=== PATIENT | male | born 1955 | race Caucasian/White ===

== ENCOUNTER 2023-03-25 15:28 | Inpatient (IN) | payer MEDICARE, SELFPAY ==
[2023-03-25] VITALS (12 sets, daily range): BP systolic 102–146; BP diastolic 40–112; PULSE 61–88; RESP 13–22; TEMP 36.3–36.9; O2SAT 90–100
--- NOTE | ~2023-03-25 | CT_ITS ---
EXAMINATION: CT soft tiss nk chst ab pel w DATE: 03/27/2023 16:09 INDICATION: Infection. TECHNIQUE: Computed tomography (CT) of the neck, chest, abdomen, and pelvis was performed with 100 mL Omnipaque 350 intravenous contrast. Automated exposure control and iterative reconstruction techniqu e were employed. The dose-length product was 2172.80 mGy-cm. COMPARISON: None FINDINGS: NECK CT: There are changes of thyroidectomy. There are no pathologically enlarged lymph nodes. There is modera te cervical spondylosis. There are changes of posterior fusion procedure from C2 to T5. There are foster inectomies from C3 to C7 and at T2 and T3. There is a fluid collection posterior to the cervical and thoracic spine measuring 12.0 x 4.1 x 16.4 cm. There are overlying skin cherise. CHEST CT: There is mild emphysema. There is mild atelectasis bilaterally. No pleural effusion. The heart size i s normal. No pericardial effusion. There are coronary artery calcifications. There is mild thoracic s pondylosis. ABDOMEN/PELVIS CT: There are cysts in the liver measuring up to 4.0 cm. The gallbladder, spleen, pancreas, and left adre nal gland are normal. There is a 2.3 cm mass of fat in right adrenal gland, consistent with a myeloli keisha. Right kidney is normal. There is a 1.9 cm cyst in left kidney. The prostate is mildly enlarged. Stool distends the rectum. There is diverticulosis of the colon without evidence of diverticulitis. The appendix is normal. There is a left-sided inferior vena cava. There are no pathologically enlarge d lymph nodes. There is no free intraperitoneal fluid. There is severe lower lumbar spondylosis. IMPRESSION: 1. 12.0 x 4.1 x 16.4 cm fluid collection posterior to the cervical and thoracic spine in the area of recent surgery, consistent with seroma versus hematoma. Abscess cannot be excluded. 2. Mild emphysema. Reviewed, dictated and finalized at location A. IMPRESSION: 1. 12.0 x 4.1 x 16.4 cm fluid collection posterior to the cervical and thoracic spine in the area of recent surgery, consistent with seroma versus hematoma. A bscess cannot be excluded. 2. Mild emphysema.
--- NOTE | ~2023-03-25 | XR_ITS ---
EXAMINATION: XR chest 1V portable DATE: 03/30/2023 13:33 INDICATION: Aspiration. TECHNIQUE: A single frontal view of the chest was obtained. COMPARISON: Chest single view 03/25/2023, CT abdomen and pelvis 03/30/2023 FINDINGS: There is mild elevation of left hemidiaphragm. There is mild atelectasis at left lung base. No pleural effusion or pneumothorax. The heart size is normal. There are changes of posterior fusion procedure in cervicothoracic spine. IMPRESSION: 1. Mild atelectasis at left lung base. Reviewed, dictated and finalized at location A.
--- NOTE | ~2023-03-25 | CT_ITS ---
EXAMINATION: CT brain wo con DATE: 03/25/2023 17:10 INDICATION: AMS . TECHNIQUE: Computed tomography (CT) of the head was performed without intravenous contrast. The mA wa s adjusted according to patient size. Iterative reconstruction technique was employed. The dose-lengt h product was 605.33 mGy-cm. COMPARISON: None. FINDINGS: No acute intracranial hemorrhage or extra-axial fluid collection. No hydrocephalus, mass, or herniation. No acute ischemic infarct. Unremarkable dural venous sinus attenuation. No acute osseous abnormality. Skin cherise over the posterior neck with subjacent postsurgical change in the soft tissues. The aerated spaces are clear. Mild atrophy and chronic white matter change. Atherosclerotic intracranial calcification. IMPRESSION: No acute intracranial process. Reviewed, dictated and finalized at location K.
--- NOTE | ~2023-03-25 | CT_ITS ---
EXAMINATION: CT thoracic spine w con DATE: 03/27/2023 16:10 INDICATION: Infection. TECHNIQUE: Computed tomography (CT) of the thoracic spine was performed with 100 mL Omnipaque 350 int ravenous contrast. Automated exposure control and iterative reconstruction technique were employed. T he dose-length product was 2172.80 mGy-cm. COMPARISON: None FINDINGS: There are changes of posterior fusion procedure from C2 to T5. There are laminectomies from C3 to C7 and at T2 and T3. No periscrew lucency to suggest loosening or infection. There is mild chr onic anterior wedging of T7 and T8 vertebral bodies. There are Schmorl's nodes at multiple levels. Th ere is mildly decreased disc height at T4-T5, T5-T6 through T9-T10. There is multilevel mild to moder ate facet joint osteoarthritis. There is mild neural foraminal stenosis at multiple levels bilaterall y. On the right, there is moderate neural foraminal stenosis at T2-T3. On the left, there is moderate neural foraminal stenosis at T1-T2 and T2-T3. There is a fluid collection posterior to the cervical and thoracic spine measuring 12.0 x 4.1 x 16.4 cm. IMPRESSION: 1. Posterior fusion procedure from C2 to T5. 2. Moderate thoracic spondylosis. 3. Postoperative fluid collection posterior to the cervical and thoracic spine measuring 12.0 x 4.1 x 16.4 cm, which may be a hematoma or seroma. Abscess cannot be excluded. Reviewed, dictated and finalized at location A. IMPRESSION: 1. Posterior fusion procedure from C2 to T5. 2. Moderate thoracic spondylosis. 3. Postoperative fluid collection posterior to the cervical and thoracic spine measuring 12.0 x 4.1 x 16.4 cm, which may be a hematoma or seroma. Abscess niki ot be excluded.
--- NOTE | ~2023-03-25 | CT_ITS ---
EXAMINATION: CT abdomen pelvis wo con DATE: 03/30/2023 09:30 INDICATION: Acute anemia after surgery. TECHNIQUE: Computed tomography (CT) of the abdomen and pelvis was performed without intravenous contr ast. Automated exposure control and iterative reconstruction technique were employed. The dose-length product was 1680.02 mGy-cm. COMPARISON: CT abdomen and pelvis 03/27/2023 FINDINGS: The visualized portions of the lung bases demonstrate mild atelectasis. There are trace ple ural effusions. The heart size is normal. There are coronary artery calcifications. No pericardial ef fusion. There are cysts in the liver measuring up to 3.9 cm. The spleen, gallbladder, pancreas, and l eft adrenal gland are normal. There is a 2.2 cm mass of fat in right adrenal gland, consistent with a myelolipoma. The kidneys are normal. There is no urolithiasis. There is diverticulosis of the colon without evidence of diverticulitis. There is a large volume of stool in the colon. There is an ulcer of the first portion of the duodenum with surrounding fat stranding, consistent with inflammation. Th ere is calcified atherosclerosis of the aorta and many of the other arteries. There are no pathologic ally enlarged lymph nodes. There is no free intraperitoneal fluid. There is severe lower lumbar spond ylosis. There is mild thoracic spondylosis. IMPRESSION: 1. Ulcer of the first portion of the duodenum with inflammation. Reviewed, dictated and finalized at location A.
--- NOTE | ~2023-03-25 | XR_ITS ---
EXAMINATION: XR chest 1V portable Exam Date/Time: 03/25/2023 16:20 CDT HISTORY: AMS Comparison: None. RESULT: Lines, tubes, and devices: Midline skin cherise. Partially visualized posterior fusion hardware. Lungs and pleura: Clear. Cardiomediastinal silhouette: Unremarkable. Other: No acute osseous or upper abdominal finding. IMPRESSION: No acute cardiopulmonary process. Reviewed, dictated and finalized at location K.
--- NOTE | 2023-03-25 15:48 | ECG_ITS ---
Measurements Intervals [place] Rate: 62 P: 68 OK: 164 QRS: -12 QRSD: 69 T: 60 QT: 396 QTc: 403 Interpretive Statements SINUS RHYTHM NONSPECIFIC T-WAVE ABNORMALITY NO PREVIOUS ECG AVAILABLE FOR COMPARISON Electronically Signed On 03-26-2023 15:54:00 CDT by Leia Wilson M.D.
[2023-03-25 16:16] LABS: Basophils Absolute Auto 0.1 K/mm3 (0.0-0.1); Basophils Percent Auto 0.4 % (0.2-1.2); Eosinophils Absolute Auto 0.2 K/mm3 (0-0.3); Eosinophils Percent Auto 1.3 % (0-4.4); Hemoglobin 11.4 g/dL (14.0-18.0); Immature Granulocyte Absolute 0.15 K/mm3 (0.00-0.031); Immature Granulocyte Percent A 1.1 % (0-0.5); Lymphocytes Absolute Auto 1.52 K/mm3 (0.9-3.2); Lymphocytes Percent Auto 11.1 % (18.3-44.2); Mean Corpuscular HGB Conc 31.7 g/dl (32-36); Mean Corpuscular Hemoglobin 30.4 pg (26-34); Mean Platelet Volume 9.5 fl (7.4-10.4); Monocytes Absolute Auto 1.1 K/mm3 (0.1-0.6); Monocytes Percent Auto 8.3 % (2.6-8.5); Neutrophils Absolute Auto 10.7 K/mm3 (1.3-6.7); Neutrophils Percent Auto 77.8 % (45.5-73.1); Platelet Count Result 369 k/mm3 (150-375); Red Blood Count 3.75 M/mm3 (4.6-6.20); Red Cell Distribution Width 12.6 % (11.5-14.5); White Blood Count 13.7 K/mm3 (4.5-10.0)
[2023-03-25 16:27] LABS: INR 1.1; Prothrombin Time 14.8 Seconds (11.1-14.7)
[2023-03-25 16:28] LABS: Alanine Aminotransferase 44 U/L (6-50); Albumin Level 3.5 g/dL (3.5-5.1); Alkaline Phosphatase 62 U/L (38-126); Anion Gap 5 mmol/L (8-16); Aspartate Amino Transferase 43 U/L (17-59); Bilirubin,Total 0.8 mg/dL (0.2-1.3); Blood Urea Nitrogen 16 mg/dL (9-20); Calcium 8.1 mg/dL (8.4-10.2); Carbon Dioxide 28 mmol/L (22-30); Chloride 106 mmol/L (98-107); Estimated CRCL calculation 103 ml/min; Estimated Glomerular Filt Rate > 60; Glucose 120 mg/dL (65-110); Partial Thromboplastin Time 31.5 SECONDS (22.3-36.8); Potassium 3.9 mmol/L (3.4-5.0); Sodium 139 mmol/L (137-145)
[2023-03-25] MEDS: SODIUM CHLORIDE 0.9% IV 3,100 ML/1,000 ML BAG 999 ML IV CONT ×4 (16:32→19:22)
[2023-03-25 16:58] LABS: Alveolar/Arterial O2 Gradient 42.7 mmHg; Carboxyhemoglobin 0.4 % THb (0-2.0); Fractional Inspired Oxygen 21 %; HCO3 ABG 22.7 mEq/l (22.0-26.0); Methemoglobin ABG 0.1 %THb (0-1.5); Oxygen Content ABG 14.2 %vol (16.0-22.0); Oxyhemoglobin 91.4 % THb (90.0-100.0); PO2 ABG 66.3 mmHg (80.0-100.0); PO2 FiO2 Ratio Arterial Blood 3.16 %; Reduced Hemoglobin 8.1 %THb (0-5.0); pH ABG 7.442 (7.350-7.450)
[2023-03-25 17:01] LABS: Device ROOM AIR; Site Drawn RIGHT BRACHIAL
[2023-03-25 17:11] LABS: Appearance Urine Clear (Clear); Bilirubin Urine 1+ (Negative); Blood Urine Negative (Negative); Color Urine Yellow (Yellow); Glucose Urine UA Negative (Negative); Ketones Urine 1+ mg/dL (Negative); Leukocyte Esterase Ur Negative LEU/UL (Negative); Nitrate Urine Negative (Negative); Protein Urine Negative (Negative); pH Urine 5.5 (5.0-9.0)
[2023-03-25 17:15] LABS: Bacteria Urine None Seen /hpf; Non Pathogenic Casts 0-2; RBC Urine 0-2 /hpf (0-2); Squamous Epithelial Cell Urine None seen /hpf (Few); WBC Urine 0-5 /hpf
[2023-03-25 17:17] LABS: Add Urine Microscopic? YES
--- NOTE | 2023-03-25 17:54 | ED.AMS ---
HPI - Altered Mental Status General Chief Complaint: Altered Mental Status Stated Complaint: AMS - from [facility] Time Seen by Provider: 03/25/23 15:36 History of Present Illness HPI narrative: Patient is a 67-year-old male who presents ER with altered mental status. Patient underwent surgery on 03/20/2023 at [facility]. He had a multilevel spine surgery from the C-spine to the T-spine. He had some bony tumor resected that was not considered to be serious. He had a fusion as well. Prior to this patient had a thyroidectomy where there was cancer noted in the thyroid. He had been doing well until spine surgery. He was normal in the preop area but after coming out from the surgery he has been altered and never returned to her normal baseline. Family denies any aggressive work-up that occurred at [facility] including MRI or CT. He has been at [facility] since being there he has been started on quetiapine and olanzapine to help with agitation. There does not appear to be any benzodiazepines or narcotic pain medications ordered. He is on melatonin. Related Data Home Medications Medication Instructions Recorded Confirmed budesonide-formoterol HFA 160 2 puff inhalation Q12H 03/21/23 03/21/23 mcg-4.5 mcg/actuation aerosol inhaler (Symbicort) levothyroxine 137 mcg tablet 137 mcg PO DAILY@0630 03/21/23 03/21/23 multivitamin 1 tablet PO DAILY 03/21/23 03/21/23 polysaccharide iron complex 150 mg 150 mg PO DAILY 03/21/23 03/21/23 iron capsule Allergies Allergy/AdvReac Type Severity Reaction Status Date / Time No Known Allergies Allergy Verified 03/21/23 17:17 Review of Systems Review of Systems: ROS unobtainable: Yes unobtainable due to mental status PMFSH Past Medical History Medical History (Updated 03/25/23 @ 18:41 by Johnathan Ruiz MD) Cervical myelopathy COPD (chronic obstructive pulmonary disease) Emphysema lung History of thyroid cancer Hypothyroidism Obstructive sleep apnea Surgical History Surgical History (Updated 03/25/23 @ 18:14 by Johnathan Ruiz MD) H/O cervical spine surgery History of thyroidectomy Family History Family History Mother Parkinson disease Father Cancer Social History Social History Smoking packs per day: 2 Smoking cigarettes per day: 40.0 Years smoked: 50 Smoking pack-years: 100.00 Smoking status: Former smoker Tobacco type: cigarettes Smoking end date: 06/17/18 Alcohol intake: former Substance use: never Lack of Transportation: No Lack of Food: Never True Current Housing: I Have Housing Concerned About Future Housing: No Difficulty Paying Gas/Electric Bills: No Difficulty Paying for Meds: No Currently Unemployed: No Education: Trade/Vocational Certificate Difficulty w/ Childcare or Family Care: No Living arrangements: with family Occupation/Education: retired Gender identity (if verbalized by the patient): Male Sexual Orientation (if Verbalized by the Patient): Straight or Heterosexual Spiritual care concerns: No Agree to blood products: Yes Exam Narrative: GENERAL: Confused-appearing, well-nourished, and in no acute distress. HEAD: Normocephalic, atraumatic. EYES: PERRL and EOMI. ENT: Dry mucous membranes. NECK: Supple. CHEST: Clear to auscultation. No respiratory distress. HEART: Regular rate and rhythm. Normal peripheral pulses. ABDOMEN: Soft, nontender, nondistended. Spine: Well-healing incision in the upper cervical spine to the lower thoracic spine. No wound dehiscence. Bag[place] in place. No surrounding swelling or cellulitis. No drainage. EXTREMITIES: Normal range of motion. No edema. SKIN: Warm, dry, no rash. NEURO: Patient is awake and alert. He will follow commands. He was able to tell us that the date was 2022 and his name however he is quite confused o
--- NOTE | 2023-03-25 19:07 | PC.NURSE ---
, Marsha [phone], please update
[2023-03-25 19:25] LABS: Procalcitonin 0.1 ng/mL
[2023-03-25 20:00] LABS: CRP 2.8 mg/dL (<1.0)
--- NOTE | 2023-03-25 20:42 | ADMGEN ---
This patient, Ayden Butt, was admitted to Medical Room 345-01. Patient/family oriented to hospital policies and general routines including ID bracelet, bed and alarms, visiting hours, pain management, procedures, bathroom and other care routines, personal items, smoking policy, room service/diet, and visiting hours. Information on how to activate the Rapid Response Team has been discussed. Patient/Family are encouraged to report perceived risks to care and to ask questions if they do not understand what they are told or what they should do.
--- NOTE | 2023-03-25 20:44 | PM.IMHP ---
H&P: HPI History of Present Illness Date/Time: 03/25/23 20:00 Chief Complaint: Altered mental status. Narrative: This is a 67-year-old male with chronic obstructive pulmonary disease, obstructive sleep apnea on CPAP, thyroid cancer status post thyroidectomy, and hypertension who presented to the emergency department via EMS from [facility] for evaluation of altered mental status. He is not able to provide an accurate history and his and daughter provide a majority of the following information. He was a bit more alert and awake when he 1st arrived to the ED according to ED physician documentation. 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 He has been confused since surgery and has not returned to baseline. He is unable to hold a conversation, appears to have occasional hallucinations, is impulsive, and he has a tendency to become agitated and somewhat aggressive with staff. He has not been able to participate in therapy and he is not eating or drinking much. He is receiving only Tylenol for pain control. Sleep is poor and sporadic. The other night he was given olanzapine 5 mg which helped him rest for only a couple of hours. He shows no signs of improvement and was brought to the ER today for evaluation. At the time my evaluation he is disagreeable, somewhat aggressive, and he does not answer questions appropriately (occasional nonsensical answers) or follow commands. No recent falls. No history of dementia. No significant alcohol use or illicit substance abuse. In the ED: He was afebrile on arrival. Vital signs have been stable. Labs were significant for a WBC count of 13.7, hemoglobin 11.4, platelets 369, sodium 139, potassium 3.9, BUN 16, creatinine 0.70, carbon dioxide 28, procalcitonin 0.1, lactic acid 1.0, CRP 2.8. Urine was positive for 1+ ketones but was otherwise unremarkable. He is not hypoxic or hypercarbic. Brain CT and chest x-rays were unremarkable. He received several L of IV crystalloids in the ED and he is being admitted in this setting for further evaluation. Review of Systems Review of Systems: Unable to assess given current clinical condition as detailed above. [facility] Past Medical History Medical History (Updated 03/25/23 @ 20:51 by Cris Maya PA-C) Cervical myelopathy Chronic obstructive pulmonary disease Emphysema lung Hypothyroidism Obstructive sleep apnea Thyroid cancer Surgical History Surgical History (Updated 03/25/23 @ 23:14 by Cris Maya PA-C) History of cervical spinal surgery History of thyroidectomy Family History Family History Mother Parkinson disease Father Cancer Social History Social History (Updated 03/25/23 @ 20:52 by Cris Maya PA-C) Social History: Surrogate medical decision maker: Marsha Butt, spouse. Code status: Full code. Smoking packs per day: 2 Smoking cigarettes per day: 40.0 Years smoked: 50 Smoking pack-years: 100.00 Smoking status: Former smoker Tobacco type: cigarettes Smoking end date: 06/17/18 Alcohol intake: former Substance use: never Lack of Transportation: No Lack of Food: Never True Current Housing: I Have Housing Concerned About Future Housing: No Difficulty Paying Gas/Electric Bills: No Difficulty Paying for Meds: No Currently Unemployed: No Education: Trade/Vocational Certificate Difficulty w/ Childcare or Family Care: No Living arrangements: with family Occupation/Education: retired Spiritual care concerns: No Agree to blood products: Yes Meds Ho
[2023-03-25 21:20] LABS: Free T4 Free Thyroxine Reflex 1.32 ng/dL (0.78-2.19)
[2023-03-26] VITALS (9 sets, daily range): BP systolic 90–109; BP diastolic 50–74; PULSE 70–92; RESP 18–20; TEMP 35.7–37.8; O2SAT 95–99
[2023-03-26] MEDS: LEVOTHYROXINE SODIUM 25 MCG TABLET PO (05:25)
[2023-03-26] MEDS: LEVOTHYROXINE SODIUM 112 MCG TABLET PO (05:25)
[2023-03-26] MEDS: FLUTICASONE/SALMETEROL 115-21 MCG INHALER 1 PUFF 2 PUFF INHALATION ×2 (07:41→20:45)
[2023-03-26 07:53] LABS: Amphetamine Screen Urine Negative (Negative); Barbiturate Screen Urine Negative (Negative); Benzodiazepines Screen Urine Negative (Negative); Cannabinoid Screen Urine Negative (Negative); Cocaine Screen Urine Negative (Negative); Methadone Screen Urine Negative (Negative); Opiate Screen Urine Negative (Negative); Phencyclidine Screen Urine Negative (Negative)
[2023-03-26 08:14] LABS: Hemoglobin 10.6 g/dL (14.0-18.0); Mean Corpuscular HGB Conc 31.2 g/dl (32-36); Mean Corpuscular Hemoglobin 30.4 pg (26-34); Mean Corpuscular Volume 97.4 fl (80-100); Mean Platelet Volume 9.7 fl (7.4-10.4); Platelet Count Result 459 k/mm3 (150-375); Red Blood Count 3.49 M/mm3 (4.6-6.20); Red Cell Distribution Width 12.4 % (11.5-14.5); White Blood Count 19.1 K/mm3 (4.5-10.0)
[2023-03-26] MEDS: polyethylene glycoL 3350 17 GM POWD.PACK PO (08:22)
[2023-03-26] MEDS: ENOXAPARIN 40 MG/0.4 ML SYRINGE SUB-Q (08:23)
[2023-03-26 08:24] LABS: Alanine Aminotransferase 42 U/L (6-50); Albumin Level 3.5 g/dL (3.5-5.1); Alkaline Phosphatase 67 U/L (38-126); Anion Gap 8 mmol/L (8-16); Aspartate Amino Transferase 35 U/L (17-59); Bilirubin,Total 0.8 mg/dL (0.2-1.3); Blood Urea Nitrogen 16 mg/dL (9-20); Calcium 7.6 mg/dL (8.4-10.2); Carbon Dioxide 21 mmol/L (22-30); Chloride 108 mmol/L (98-107); Estimated CRCL calculation 103 ml/min; Estimated Glomerular Filt Rate > 60; Glucose 120 mg/dL (65-110); Magnesium 2.3 mg/dL (1.6-2.3); Potassium 3.6 mmol/L (3.4-5.0); Sodium 137 mmol/L (137-145)
[2023-03-26 08:28] LABS: Ammonia < 9 umol/L (9-30)
--- NOTE | 2023-03-26 08:28 | P.PNIM_ITS ---
Progress Note: A&P Assessment and Plan (1) Altered mental status: Code(s): R41.82 - Altered mental status, unspecified Status: Acute Assessment and Plan: 03/26/23: * Patient awake and alert, he does not seem agitated however he is restless, he is talking incoherently with sporadic thought process, pupils 2 mm, equal, and reactive to light, he will follow commands. * Patient was on Zyprexa and Seroquel at [facility], not sure if this is contributing to his altered mental status. * Patient and deny any alcohol abuse which would suggest alcohol withdrawal, patient has not had a drink since August of this year * UA only showed 1+ ketones, 1+ bili, no culture indicated * Patient has history of thyroid cancer which she had resected and January of this past year, TSH today is 9.43, free T4 1.32, total T3 0.7. * Neuro exam negative today, able to do F-N-F test, EOM intact, cranial nerves intact * Blood sugars have been ranging 120-130 * Patient has history of COPD and pCO2 on overnight ABG was 34.0, serum carbon dioxide 21 so we can rule out CO2 retention. * BUN 16, creatinine 0.7 today * He has not received any pain medication related to his spine surgery that may contribute to his altered mental status * We checked an ammonia level which was less than 9, liver enzymes were essentially normal so we can rule out hepatic encephalopathy * Patient has had spine surgery on 03/14/23 at [facility] in [place], patient has an incision from neck to midthoracic with cherise that are open to air, incision well approximated, no redness or drainage noted, white blood cell count today was 19.1, procalcitonin was 0.1. WBC may be due to inflammatory response however bacterial and viral infection cannot be ruled out as the patient is still altered. * states that patient has not slept since his surgery on 03/14/2023 and that he left [facility] to go to [facility] even though he was still altered at time of discharge. Patient may just be delirious from not sleeping. I wrote for 1 time dose of Haldol 5 mg to be given today for him to rest. I also wrote for trazodone 50 mg to be given tonight for sleep. We will re-evaluate him in the morning. If he is not better with his mental s tatus then a neurology consult may be warranted. (2) Hypothyroidism: Code(s): E03.9 - Hypothyroidism, unspecified Status: Acute Assessment and Plan: 03/26/2023: * Patient has history of thyroid cancer with resection done January of this year. * Continue Synthroid (3) Obstructive sleep apnea: Code(s): G47.33 - Obstructive sleep apnea (adult) (pediatric) Status: Acute Assessment and Plan: 03/26/23: * Patient currently on room air * PCO2 34.0, concurrently not retaining any CO2 (4) Leukocytosis: Code(s): D72.829 - Elevated white blood cell count, unspecified Status: Acute Assessment and Plan: 03/26/23 * WBC 19.1 today * Blood cultures pending * Procalcitonin 0.1, patient currently not on antibiotics * Spinal incision without redness, swelling, drainage. Incision well approximated with cherise. No signs of infection. (5) Status post spinal surgery: Code(s): Z98.890 - Other specified postprocedural states Status: Acute Assessment and Plan: 03/26/23: Patient underwent elective spinal surgery on 03/14/2023 at [facility] in [place] which included CT-T5 posterior instrumentation fusion with decompression,-C3 through C7 T3 laminectomy for resection of tumor, and T3 vertebral body bone open biopsy secondary to cervical and thoracic spondylosis and spina
--- NOTE | 2023-03-26 08:28 | PM.IMPN ---
Progress Note: A&P Assessment and Plan (1) Altered mental status: Code(s): R41.82 - Altered mental status, unspecified Status: Acute Assessment and Plan: 03/26/23: Patient awake and alert, he does not seem agitated however he is restless, he is talking incoherently with sporadic thought process, pupils 2 mm, equal, and reactive to light, he will follow commands. Patient was on Zyprexa and Seroquel at [facility], not sure if this is contributing to his altered mental status. Patient and deny any alcohol abuse which would suggest alcohol withdrawal, patient has not had a drink since August of this year UA only showed 1+ ketones, 1+ bili, no culture indicated Patient has history of thyroid cancer which she had resected and January of this past year, TSH today is 9.43, free T4 1.32, total T3 0.7. Neuro exam negative today, able to do F-N-F test, EOM intact, cranial nerves intact Blood sugars have been ranging 120-130 Patient has history of COPD and pCO2 on overnight ABG was 34.0, serum carbon dioxide 21 so we can rule out CO2 retention. BUN 16, creatinine 0.7 today He has not received any pain medication related to his spine surgery that may contribute to his altered mental status We checked an ammonia level which was less than 9, liver enzymes were essentially normal so we can rule out hepatic encephalopathy Patient has had spine surgery on 03/14/23 at [facility] in [place], patient has an incision from neck to midthoracic with cherise that are open to air, incision well approximated, no redness or drainage noted, white blood cell count today was 19.1, procalcitonin was 0.1. WBC may be due to inflammatory response however bacterial and viral infection cannot be ruled out as the patient is still altered. states that patient has not slept since his surgery on 03/14/2023 and that he left [facility] to go to [facility] even though he was still altered at time of discharge. Patient may just be delirious from not sleeping. I wrote for 1 time dose of Haldol 5 mg to be given today for him to rest. I also wrote for trazodone 50 mg to be given tonight for sleep. We will re-evaluate him in the morning. If he is not better with his mental status then a neurology consult may be warranted. (2) Hypothyroidism: Code(s): E03.9 - Hypothyroidism, unspecified Status: Acute Assessment and Plan: 03/26/2023: Patient has history of thyroid cancer with resection done January of this year. Continue Synthroid (3) Obstructive sleep apnea: Code(s): G47.33 - Obstructive sleep apnea (adult) (pediatric) Status: Acute Assessment and Plan: 03/26/23: Patient currently on room air PCO2 34.0, concurrently not retaining any CO2 (4) Leukocytosis: Code(s): D72.829 - Elevated white blood cell count, unspecified Status: Acute Assessment and Plan: 03/26/23 WBC 19.1 today Blood cultures pending Procalcitonin 0.1, patient currently not on antibiotics Spinal incision without redness, swelling, drainage. Incision well approximated with cherise. No signs of infection. 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 Time Spent With Patient Time with patient: Greater than 35 minutes Subjective Date/time seen: 03/26/23 08:28 Interval history: Interval summary: This is a 67-year-old male who presented to hospital via EMS from [facility] for evaluation of altered mental st
[2023-03-26 09:51] LABS: Free T4 Free Thyroxine Reflex 1.11 ng/dL (0.78-2.19)
[2023-03-26] MEDS: MULTIVITAMINS THERAPEUTIC TAB (*BKC) 1 TABLET PO (12:50)
[2023-03-26] MEDS: FERROUS SULFATE 325 MG TABLET DR PO (12:50)
[2023-03-26] MEDS: DEXTROSE 5%/0.9% SOD CHL 1,000 ML 100 ML IV CONT (13:52)
[2023-03-26] MEDS: HALOPERIDOL LACTATE 5 MG/ML VIAL IV PUSH (13:53)
[2023-03-26 19:15] LABS: Basophils Percent Auto 0.3 % (0.2-1.2); Eosinophils Absolute Auto 0.1 K/mm3 (0-0.3); Eosinophils Percent Auto 0.4 % (0-4.4); Hemoglobin 10.3 g/dL (14.0-18.0); Immature Granulocyte Absolute 0.19 K/mm3 (0.00-0.031); Immature Granulocyte Percent A 1.2 % (0-0.5); Lymphocytes Absolute Auto 1.56 K/mm3 (0.9-3.2); Mean Corpuscular HGB Conc 31.2 g/dl (32-36); Mean Corpuscular Hemoglobin 30.8 pg (26-34); Mean Corpuscular Volume 98.8 fl (80-100); Mean Platelet Volume 9.7 fl (7.4-10.4); Monocytes Absolute Auto 1.1 K/mm3 (0.1-0.6); Neutrophils Absolute Auto 12.7 K/mm3 (1.3-6.7); Neutrophils Percent Auto 81.1 % (45.5-73.1); Platelet Count Result 372 k/mm3 (150-375); Red Blood Count 3.34 M/mm3 (4.6-6.20); Red Cell Distribution Width 12.6 % (11.5-14.5); White Blood Count 15.6 K/mm3 (4.5-10.0)
[2023-03-26 19:33] LABS: Alanine Aminotransferase 39 U/L (6-50); Albumin Level 3.1 g/dL (3.5-5.1); Alkaline Phosphatase 60 U/L (38-126); Anion Gap 6 mmol/L (8-16); Aspartate Amino Transferase 33 U/L (17-59); Bilirubin,Total 0.5 mg/dL (0.2-1.3); Blood Urea Nitrogen 20 mg/dL (9-20); Calcium 7.8 mg/dL (8.4-10.2); Carbon Dioxide 24 mmol/L (22-30); Chloride 108 mmol/L (98-107); Estimated CRCL calculation 91 ml/min; Estimated Glomerular Filt Rate > 60; Glucose 104 mg/dL (65-110); Potassium 3.5 mmol/L (3.4-5.0); Sodium 138 mmol/L (137-145)
[2023-03-27 04:36] VITALS: BP 119/68; PULSE 115; RESP 16; TEMP 36.3; O2SAT 96
[2023-03-27] MEDS: LEVOTHYROXINE SODIUM 25 MCG TABLET PO (05:53)
[2023-03-27] MEDS: LEVOTHYROXINE SODIUM 112 MCG TABLET PO (05:53)
[2023-03-27 06:15] LABS: Magnesium 2.2 mg/dL (1.6-2.3)
[2023-03-27] MEDS: polyethylene glycoL 3350 17 GM POWD.PACK PO (08:37)
[2023-03-27] MEDS: ENOXAPARIN 40 MG/0.4 ML SYRINGE SUB-Q (08:37)
[2023-03-27 08:40] VITALS: BP 103/74; PULSE 84; RESP 18; TEMP 36.9; O2SAT 99
[2023-03-27 09:12] LABS: Basophils Percent Auto 0.2 % (0.2-1.2); Eosinophils Absolute Auto 0.1 K/mm3 (0-0.3); Eosinophils Percent Auto 0.5 % (0-4.4); Hematocrit 31.8 % (42.0-52.0); Hemoglobin 10.1 g/dL (14.0-18.0); Immature Granulocyte Absolute 0.17 K/mm3 (0.00-0.031); Lymphocytes Absolute Auto 1.27 K/mm3 (0.9-3.2); Lymphocytes Percent Auto 7.2 % (18.3-44.2); Mean Corpuscular HGB Conc 31.8 g/dl (32-36); Mean Corpuscular Hemoglobin 30.8 pg (26-34); Monocytes Absolute Auto 1.1 K/mm3 (0.1-0.6); Monocytes Percent Auto 6.5 % (2.6-8.5); Neutrophils Absolute Auto 14.9 K/mm3 (1.3-6.7); Neutrophils Percent Auto 84.6 % (45.5-73.1); Platelet Count Result 420 k/mm3 (150-375); Red Blood Count 3.28 M/mm3 (4.6-6.20); Red Cell Distribution Width 12.7 % (11.5-14.5); White Blood Count 17.6 K/mm3 (4.5-10.0)
[2023-03-27 09:25] LABS: Alanine Aminotransferase 47 U/L (6-50); Albumin Level 3.2 g/dL (3.5-5.1); Alkaline Phosphatase 71 U/L (38-126); Anion Gap 6 mmol/L (8-16); Aspartate Amino Transferase 44 U/L (17-59); Bilirubin,Total 0.7 mg/dL (0.2-1.3); Blood Urea Nitrogen 21 mg/dL (9-20); Calcium 7.9 mg/dL (8.4-10.2); Carbon Dioxide 24 mmol/L (22-30); Chloride 107 mmol/L (98-107); Estimated CRCL calculation 103 ml/min; Estimated Glomerular Filt Rate > 60; Glucose 112 mg/dL (65-110); Potassium 3.3 mmol/L (3.4-5.0); Sodium 137 mmol/L (137-145)
[2023-03-27] MEDS: FLUTICASONE/SALMETEROL 115-21 MCG INHALER 1 PUFF 2 PUFF INHALATION ×2 (09:54→22:00)
[2023-03-27 09:57] VITALS: RESP 20
[2023-03-27] MEDS: DEXTROSE 5%/0.9% SOD CHL 1,000 ML 100 ML IV CONT ×2 (12:40→20:27)
[2023-03-27] MEDS: MULTIVITAMINS THERAPEUTIC TAB (*BKC) 1 TABLET PO (12:40)
[2023-03-27] MEDS: FERROUS SULFATE 325 MG TABLET DR PO (12:40)
--- NOTE | 2023-03-27 14:10 | PM.IMPN ---
Progress Note: A&P Assessment and Plan (1) Altered mental status: Code(s): R41.82 - Altered mental status, unspecified Status: Acute Assessment and Plan: Patient has had spine surgery on 03/14/23 at [facility], patient has an incision from neck to midthoracic with cherise that are open to air, incision well approximated, no redness or drainage noted, white blood cell count today was 17.6, procalcitonin was 0.1. WBC may be due to inflammatory response however bacterial and viral infection cannot be ruled out as the patient is still altered. Patient with elevated white count without evidence of infection. Urine, CT head and CXR clear. UA only showed 1+ ketones, 1+ bili, no culture indicated No hx of alcohol or drug abuse. Patient has history of COPD and pCO2 on overnight ABG was 34.0, serum carbon dioxide 21 so we can rule out CO2 retention. We checked an ammonia level which was less than 9, liver enzymes were essentially normal so we can rule out hepatic encephalopathy CT chest, abdomen, pelvis, cervical, thoracic and lumbar ordered. Consider LP depending of CT scans results. (2) Hypothyroidism: Code(s): E03.9 - Hypothyroidism, unspecified Status: Acute Assessment and Plan: Patient has history of thyroid cancer with resection done January of this year. Continue Synthroid (3) Obstructive sleep apnea: Code(s): G47.33 - Obstructive sleep apnea (adult) (pediatric) Status: Acute Assessment and Plan: Patient currently on room air PCO2 34.0, concurrently not retaining any CO2 (4) Leukocytosis: Code(s): D72.829 - Elevated white blood cell count, unspecified Status: Acute Assessment and Plan: WBC 17.6 today Blood cultures pending Procalcitonin 0.1, patient currently not on antibiotics Spinal incision without redness, swelling, drainage. Incision well approximated with cherise. No signs of infection. 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 Subjective Date/time seen: 03/27/23 14:10 Interval history: Patient appears to be delirious. Spoke with nurse that works with patient's neurosurgeon from [facility] informed her of the situation. Was told that patient could be experiencing postoperative delirium. Will attempt to contact patient's neurosurgeon. Spoke with radiologist here and they are recommending CT of spine as well as CT chest abdomen pelvis. Patient does have lower extremity edema that presented shortly after surgery. Will order BNP for the morning. Patient has been experiencing these mental status changes since his surgery. Will also plan on consulting Neurology. Exam Narrative: GENERAL: Comfortable, no acute distress HENMT: moist mucous membranes EYES: EOM intact b/l NECK: no lymphadenopathy RESPIRATORY: clear to auscultation CARDIO: RRR GI: soft, nontender, bowel sounds present SKIN: no rashes EXTREMITIES: no redness, tenderness; 2+ pitting edema of lower extremities. BACK: Well-healing surgical incision from the middle of the neck to her thoracic spine with cherise in place. Minimal redness and skin is a nice pink color without drainage or swelling. Tremor noticed in bilateral hands. Objective Data Vital Signs Vital Signs: Vital Signs - 24 hr 03/26/23 16:00 03/26/23 16:00 03/26/23 20:00 Temperature 96.5 F L Pulse Rate 70 75 Respiratory Rate 18 Blood Pressure 109/53
[2023-03-27 16:41] VITALS: BP 131/76; PULSE 69; RESP 18; TEMP 36.8; O2SAT 100
[2023-03-27 18:41] LABS: Basophils Absolute Auto 0.1 K/mm3 (0.0-0.1); Basophils Percent Auto 0.3 % (0.2-1.2); Eosinophils Absolute Auto 0.1 K/mm3 (0-0.3); Eosinophils Percent Auto 0.9 % (0-4.4); Hematocrit 32.5 % (42.0-52.0); Hemoglobin 9.8 g/dL (14.0-18.0); Immature Granulocyte Absolute 0.17 K/mm3 (0.00-0.031); Immature Granulocyte Percent A 1.1 % (0-0.5); Lymphocytes Absolute Auto 1.49 K/mm3 (0.9-3.2); Lymphocytes Percent Auto 9.6 % (18.3-44.2); Mean Corpuscular HGB Conc 30.2 g/dl (32-36); Mean Corpuscular Hemoglobin 30.3 pg (26-34); Mean Corpuscular Volume 100.6 fl (80-100); Mean Platelet Volume 9.8 fl (7.4-10.4); Monocytes Percent Auto 6.2 % (2.6-8.5); Neutrophils Absolute Auto 12.7 K/mm3 (1.3-6.7); Neutrophils Percent Auto 81.9 % (45.5-73.1); Platelet Count Result 384 k/mm3 (150-375); Red Blood Count 3.23 M/mm3 (4.6-6.20); Red Cell Distribution Width 12.6 % (11.5-14.5); White Blood Count 15.5 K/mm3 (4.5-10.0)
[2023-03-27 18:53] LABS: Alanine Aminotransferase 50 U/L (6-50); Albumin Level 3.2 g/dL (3.5-5.1); Alkaline Phosphatase 69 U/L (38-126); Anion Gap 9 mmol/L (8-16); Aspartate Amino Transferase 43 U/L (17-59); Bilirubin,Total 0.6 mg/dL (0.2-1.3); Blood Urea Nitrogen 20 mg/dL (9-20); Calcium 7.8 mg/dL (8.4-10.2); Carbon Dioxide 22 mmol/L (22-30); Chloride 107 mmol/L (98-107); Estimated CRCL calculation 103 ml/min; Estimated Glomerular Filt Rate > 60; Glucose 121 mg/dL (65-110); Potassium 3.3 mmol/L (3.4-5.0); Sodium 138 mmol/L (137-145)
[2023-03-27 20:00] VITALS: BP 121/66; PULSE 76; RESP 14; TEMP 36.9; O2SAT 100
[2023-03-27] MEDS: MELATONIN 3 MG TABLET 9 MG PO (20:19)
[2023-03-27 22:26] VITALS: PULSE 67; RESP 21; O2SAT 95
--- NOTE | 2023-03-28 | ECHO_ITS ---
Patient Info Name: Ayden Butt Age: 67 years : 1955 Gender: Male Ht: 65 in Wt: 220 lbs BSA: 2.18 m2 HR: 72 bpm BP: 109 / 66 mmHg Heart Rhythm: Indeterminant Technical Quality: Good Exam Date: 03/28/2023 11:28 AM Exam Location: [facility] Pulmonary Patient Status: Inpatient Admit Date: 03/26/2023 Staff Ordering Physician: Zulay Prince PA-C Site Planner: Dwight Hayes RDCS Attending Provider: Ashlee Navarrete DO Referring Physician: Suresh SUN; Exam Type: CA echo doppler color flow Study Info Indications - LOWER EXTREMITY EDEMA Complete two-dimensional, color flow and Doppler transthoracic echocardiogram is performed. Summary 1. Complete two-dimensional, color flow and Doppler transthoracic echocardiogram is performed. 2. Left ventricular chamber dimension is normal. 3. Left ventricular systolic function is normal, estimated at 60-65%. 4. There is no increased left ventricular wall thickness. 5. The left ventricular diastolic function is grade I diastolic dysfunction. 6. Left atrial chamber dimension is mildly enlarged. 7. The mitral valve annulus is mildly calcified. 8. There is mild mitral valve regurgitation. Left Ventricle Left ventricular chamber dimension is normal. Left ventricular systolic function is normal, estimated at 60-65%. There is no increased left ventricular wall thickness. The left ventricular diastolic function is grade I diastolic dysfunction. Right Ventricle Right ventricular chamber dimension is normal. Right ventricular systolic function is normal. Left Atria Left atrial chamber dimension is mildly enlarged. Right Atria Right atrial chamber dimension is normal. Atrial Septum Intact interatrial septum visualized by color flow imaging. Aortic Valve The aortic valve is probable trileaflet. There is mild aortic valve sclerosis. There is no aortic valve stenosis. There is trace aortic valve regurgitation. Pulmonic Valve The pulmonic valve is normal. There is no pulmonic valve stenosis. There is trace pulmonic regurgitation. Mitral Valve The mitral valve has thickened leaflets. There is no mitral valve stenosis. There is mild mitral valve regurgitation. The mitral valve annulus is mildly calcified. Tricuspid Valve The tricuspid valve leaflets are normal. There is no significant tricuspid valve stenosis. There is trace tricuspid valve regurgitation. No pulmonary hypertension, estimated pulmonary arterial systolic pressure is 17 mmHg. Pericardium/Pleural The pericardium appears normal. There is no pericardial effusion. Inferior Vena Cava Normal inferior vena cava with >50% collapse upon inspiration consistent with normal right atrial pressure, 10 mmHg. Aorta The aortic root size at the sinus of Valsalva is normal. Left Ventricular Outflow Tract Name Value Normal LVOT 2D LVOT Diameter 1.8 cm LVOT Doppler LVOT Peak Gradient 7 mmHg LVOT Mean Gradient 3 mmHg LVOT VTI 28 cm LVOT VTI/AV VTI Ratio 1.0 LVOT Stroke Volume 73 ml LVOT CO 4.5 l/min
[2023-03-28 04:00] VITALS: BP 109/66; PULSE 69; RESP 14; TEMP 36.9; O2SAT 97
[2023-03-28] MEDS: LEVOTHYROXINE SODIUM 25 MCG TABLET PO (05:43)
[2023-03-28] MEDS: LEVOTHYROXINE SODIUM 112 MCG TABLET PO (05:43)
[2023-03-28 06:18] LABS: NT Pro B Type Natriuretic Pept 224 pg/mL (19.9-100)
[2023-03-28] MEDS: FLUTICASONE/SALMETEROL 115-21 MCG INHALER 1 PUFF 2 PUFF INHALATION ×2 (06:55→20:32)
[2023-03-28 07:00] VITALS: PULSE 72; RESP 18; O2SAT 95
[2023-03-28 08:21] LABS: Basophils Percent Auto 0.2 % (0.2-1.2); Eosinophils Absolute Auto 0.2 K/mm3 (0-0.3); Eosinophils Percent Auto 1.6 % (0-4.4); Hematocrit 30.4 % (42.0-52.0); Hemoglobin 9.3 g/dL (14.0-18.0); Immature Granulocyte Absolute 0.19 K/mm3 (0.00-0.031); Immature Granulocyte Percent A 1.5 % (0-0.5); Lymphocytes Absolute Auto 1.12 K/mm3 (0.9-3.2); Mean Corpuscular HGB Conc 30.6 g/dl (32-36); Mean Corpuscular Hemoglobin 30.2 pg (26-34); Mean Corpuscular Volume 98.7 fl (80-100); Mean Platelet Volume 9.9 fl (7.4-10.4); Monocytes Percent Auto 7.7 % (2.6-8.5); Neutrophils Absolute Auto 9.9 K/mm3 (1.3-6.7); Platelet Count Result 378 k/mm3 (150-375); Red Blood Count 3.08 M/mm3 (4.6-6.20); Red Cell Distribution Width 12.8 % (11.5-14.5); White Blood Count 12.4 K/mm3 (4.5-10.0)
[2023-03-28] MEDS: ENOXAPARIN 40 MG/0.4 ML SYRINGE SUB-Q (08:21)
[2023-03-28] MEDS: polyethylene glycoL 3350 17 GM POWD.PACK PO (08:21)
[2023-03-28 08:28] LABS: Alanine Aminotransferase 50 U/L (6-50); Albumin Level 2.9 g/dL (3.5-5.1); Alkaline Phosphatase 65 U/L (38-126); Aspartate Amino Transferase 45 U/L (17-59); Blood Urea Nitrogen 17 mg/dL (9-20)
[2023-03-28 08:29] LABS: Anion Gap 6 mmol/L (8-16); Bilirubin,Total 0.5 mg/dL (0.2-1.3); Calcium 7.6 mg/dL (8.4-10.2); Carbon Dioxide 23 mmol/L (22-30); Chloride 109 mmol/L (98-107); Estimated CRCL calculation 103 ml/min; Estimated Glomerular Filt Rate > 60; Glucose 134 mg/dL (65-110); Potassium 3.2 mmol/L (3.4-5.0); Sodium 138 mmol/L (137-145)
[2023-03-28] MEDS: POTASSIUM CHLORIDE 20 MEQ ER TABLET 40 MEQ PO (09:50)
[2023-03-28] MEDS: ACETAMINOPHEN 325 MG TABLET 650 MG PO ×2 (09:50→18:35)
--- NOTE | 2023-03-28 12:03 | WPDNEURCNPN ---
Assessment and Plan Assessment and plan (1) Altered mental status: Code(s): R41.82 - Altered mental status, unspecified Status: Acute (2) Status post spinal surgery: Code(s): Z98.890 - Other specified postprocedural states Status: Acute (3) Hypothyroidism: Code(s): E03.9 - Hypothyroidism, unspecified Status: Acute (4) Delirium: Code(s): R41.0 - Disorientation, unspecified Status: Acute Plan Ayden Butt is a 67 year old male with a history of COPD, JOSE, thyroid cancer s/p thyroidectomy, HN [facility] status in the setting of recent spinal surgery. Etiology is broad at this point. Patient's neurosurgeon suspecting this is post-operative delirium. However, now that we are two weeks out from surgery, we are also considering underlying infection, medication effect, and stroke as possibilities. CT chest/abd showed fluid collection around the surgical area, which could be infectious in etiology, although he has remained afebrile and WBC has come down without use of antibiotics. TSH elevated to 9 which also could be contributing. Mental status seems to have improved since psychotropic medications were discontinued. - Would like to get an MRI brain when able, given the problems with speech, and questionable LUE weakness - Will continue to monitor mental status, may consider LP if he becomes more encephalopathic Consult date: 03/28/23 Reason for consult: Altered mental status HPI: Ayden Butt is a 67 year old male with a history of COPD, JOSE, thyroid cancer s/p thyroidectomy, HN presenting from [facility] for altered mental status. Of note, patient was in rehab after having surgery on 03/14 at [facility] for C2-T5 fusion with decompression and C3 through C7-T3 laminectomy for resection of a tumor, and T3 vertebral body bone open biopsy. reports that patient has been confused since his surgery and has not been back to baseline. He was unable to hold a conversation, having hallucinations, agitated/aggressive. He was not sleeping well at rehab either. He received Seroquel and Zyprexa during his rehab stay. When he was brought to [facility] he was afebrile with stable vitals. His labs were significant for leukocytosis, which has gone up to 19.1 during this admission. CXR and UA not concerning for infection. CT head was negative for acute process. TSH elevated to 9.760. CT of the chest/abdomen/pelvis done which showed [id number] fluid collection posterior to C/T spine suggestive of seroma vs hematoma, although abscess cannot be excluded. Unfortunately he cannot have MRI currently due to the surgical cherise that were placed. The hospitalist discontinued psychotropic medications, and patient actually appears to be more alert and communicative today. He continues to have some word salad' while speaking to members of the medical team. His WBC has come down to 12 today, without the use of any antibiotics. He has also remained afebrile. Review of Systems Constitutional: Constitutional: Denies chills, Denies fever(s) and Denies weight loss Eyes: Eyes: Denies diplopia and Denies loss of vision ENT: Denies dizziness, Denies hearing loss and Denies tinnitus Cardiovascular: Cardiovascular: Denies chest pain, Denies syncope and Denies dyspnea Respiratory: Respiratory: Denies cough, Denies dyspnea and Denies wheezing Gastrointestinal: Gastrointestinal: Denies abdominal pain, Denies change in bowel habits, Reports constipation and Denies vomiting Genitourinary: Genitourinary: Denies urinary incontinence Musculoskeletal: Musculoskeletal: Reports back pain, Reports arthralgias and Denies joint swelling Integumentary/Breasts: Skin/Breast: Denies new lesions and Denies rash Neurologic: Reports as per HPI, Denies dizziness, Denies syncope and Denies loss of vision Psychiatric: Psychiatric: Denies anxiety and Denies depression Hematologic/Lymphatic: Hematologic/Lymp
[2023-03-28] MEDS: MULTIVITAMINS THERAPEUTIC TAB (*BKC) 1 TABLET PO (13:04)
[2023-03-28] MEDS: FERROUS SULFATE 325 MG TABLET DR PO (13:04)
[2023-03-28] MEDS: DEXTROSE 5%/0.9% SOD CHL 1,000 ML 100 ML IV CONT (13:06)
[2023-03-28 14:41] VITALS: BP 108/62; PULSE 77; RESP 18; TEMP 36.4; O2SAT 97
--- NOTE | 2023-03-28 14:48 | PM.IMPN ---
Progress Note: A&P Assessment and Plan (1) Altered mental status: Code(s): R41.82 - Altered mental status, unspecified Status: Acute Assessment and Plan: Patient has had spine surgery on 03/14/23 at [facility] in [place], patient has an incision from neck to midthoracic with cherise that are open to air, incision well approximated, no redness or drainage noted, white blood cell count today was 17.6, procalcitonin was 0.1. WBC may be due to inflammatory response however bacterial and viral infection cannot be ruled out as the patient is still altered. Patient with elevated white count without evidence of infection. Urine, CT head and CXR clear. UA only showed 1+ ketones, 1+ bili, no culture indicated No hx of alcohol or drug abuse. Patient has history of COPD and pCO2 on overnight ABG was 34.0, serum carbon dioxide 21 so we can rule out CO2 retention. We checked an ammonia level which was less than 9, liver enzymes were essentially normal so we can rule out hepatic encephalopathy CT chest, abdomen, pelvis, cervical, thoracic and lumbar showing a 12 x 4.1 x 16.4 cm fluid collection in the posterior cervical and thoracic spine area most likely consistent with seroma versus hematoma but abscess cannot be excluded. Neurology consulted appreciate recommendations. (2) Hypothyroidism: Code(s): E03.9 - Hypothyroidism, unspecified Status: Acute Assessment and Plan: Patient has history of thyroid cancer with resection done January of this year. Continue Synthroid (3) Obstructive sleep apnea: Code(s): G47.33 - Obstructive sleep apnea (adult) (pediatric) Status: Acute Assessment and Plan: Patient currently on room air PCO2 34.0, concurrently not retaining any CO2 (4) Leukocytosis: Code(s): D72.829 - Elevated white blood cell count, unspecified Status: Acute Assessment and Plan: WBC 12.4 today Blood cultures pending Procalcitonin 0.1, patient currently not on antibiotics Spinal incision without redness, swelling, drainage. Incision well approximated with cherise. No signs of infection. 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 Subjective Date/time seen: 03/28/23 14:48 Interval history: Mental status much improved today. Patient still having some trouble finding words but otherwise able to have decent conversation. All of patient's altering medications were discontinued and after this he has seen to be more alert and oriented. Patient's white count has dropped to 12.4 today. Will continue to monitor the patient off of mind-altering medications. Neurology on board. Exam Narrative: GENERAL: Comfortable, no acute distress HENMT: moist mucous membranes EYES: EOM intact b/l NECK: no lymphadenopathy RESPIRATORY: clear to auscultation CARDIO: RRR GI: soft, nontender, bowel sounds present SKIN: no rashes EXTREMITIES: no redness, tenderness; 2+ pitting edema of lower extremities. BACK: Well-healing surgical incision from the middle of the neck to her thoracic spine with cherise in place. Minimal redness and skin is a nice pink color without drainage or swelling. Tremor noticed in bilateral hands. Objective Data Vital Signs Vital Signs: Vital Signs - 24 hr 03/27/23 16:41 03/27/23 20:00 03/27/23 22:26 Temperature 98.2 F 98.5 F Pulse Rate 69 76 67 Respiratory Rate 18 14 21 H Blood Pressure 131/76 121/66
[2023-03-28 18:22] LABS: Basophils Absolute Auto 0.1 K/mm3 (0.0-0.1); Basophils Percent Auto 0.4 % (0.2-1.2); Eosinophils Absolute Auto 0.3 K/mm3 (0-0.3); Eosinophils Percent Auto 2.3 % (0-4.4); Hemoglobin 9.3 g/dL (14.0-18.0); Immature Granulocyte Absolute 0.13 K/mm3 (0.00-0.031); Immature Granulocyte Percent A 1.1 % (0-0.5); Lymphocytes Absolute Auto 1.48 K/mm3 (0.9-3.2); Lymphocytes Percent Auto 12.4 % (18.3-44.2); Mean Corpuscular Hemoglobin 30.5 pg (26-34); Mean Corpuscular Volume 98.4 fl (80-100); Mean Platelet Volume 9.7 fl (7.4-10.4); Monocytes Percent Auto 8.6 % (2.6-8.5); Neutrophils Percent Auto 75.2 % (45.5-73.1); Platelet Count Result 367 k/mm3 (150-375); Red Blood Count 3.05 M/mm3 (4.6-6.20)
[2023-03-28 18:30] VITALS: BP 108/77; PULSE 85; RESP 18; TEMP 36.1; O2SAT 100
[2023-03-28 18:34] LABS: Alanine Aminotransferase 54 U/L (6-50); Alkaline Phosphatase 66 U/L (38-126); Anion Gap 4 mmol/L (8-16); Aspartate Amino Transferase 44 U/L (17-59); Bilirubin,Total 0.5 mg/dL (0.2-1.3); Blood Urea Nitrogen 18 mg/dL (9-20); Calcium 7.6 mg/dL (8.4-10.2); Carbon Dioxide 24 mmol/L (22-30); Chloride 111 mmol/L (98-107); Estimated CRCL calculation 103 ml/min; Estimated Glomerular Filt Rate > 60; Glucose 101 mg/dL (65-110); Potassium 3.5 mmol/L (3.4-5.0); Sodium 139 mmol/L (137-145)
[2023-03-28] MEDS: MELATONIN 3 MG TABLET 9 MG PO (20:23)
[2023-03-28 20:36] VITALS: PULSE 71; RESP 18
[2023-03-28 22:20] VITALS: BP 110/85; PULSE 73; RESP 21; TEMP 36.1; O2SAT 100
[2023-03-29] VITALS (9 sets, daily range): BP systolic 100–143; BP diastolic 56–76; PULSE 74–90; RESP 18–20; TEMP 36.3–36.6; O2SAT 95–100; BMI 32.1
[2023-03-29] MEDS: DEXTROSE 5%/0.9% SOD CHL 1,000 ML 100 ML IV CONT (02:38)
[2023-03-29] MEDS: IBUPROFEN 600 MG TABLET PO (02:39)
[2023-03-29 05:39] LABS: Basophils Absolute Auto 0.1 K/mm3 (0.0-0.1); Basophils Percent Auto 0.5 % (0.2-1.2); Eosinophils Absolute Auto 0.3 K/mm3 (0-0.3); Eosinophils Percent Auto 2.1 % (0-4.4); Hematocrit 27.7 % (42.0-52.0); Hemoglobin 8.5 g/dL (14.0-18.0); Immature Granulocyte Absolute 0.12 K/mm3 (0.00-0.031); Lymphocytes Absolute Auto 1.13 K/mm3 (0.9-3.2); Lymphocytes Percent Auto 9.7 % (18.3-44.2); Mean Corpuscular HGB Conc 30.7 g/dl (32-36); Mean Corpuscular Hemoglobin 30.9 pg (26-34); Mean Corpuscular Volume 100.7 fl (80-100); Mean Platelet Volume 9.9 fl (7.4-10.4); Monocytes Absolute Auto 0.9 K/mm3 (0.1-0.6); Monocytes Percent Auto 7.6 % (2.6-8.5); Neutrophils Absolute Auto 9.2 K/mm3 (1.3-6.7); Neutrophils Percent Auto 79.1 % (45.5-73.1); Platelet Count Result 346 k/mm3 (150-375); Red Blood Count 2.75 M/mm3 (4.6-6.20); Red Cell Distribution Width 12.8 % (11.5-14.5); White Blood Count 11.7 K/mm3 (4.5-10.0)
[2023-03-29] MEDS: LEVOTHYROXINE SODIUM 25 MCG TABLET PO (05:44)
[2023-03-29] MEDS: LEVOTHYROXINE SODIUM 112 MCG TABLET PO (05:44)
[2023-03-29 05:58] LABS: Alanine Aminotransferase 46 U/L (6-50); Albumin Level 2.6 g/dL (3.5-5.1); Alkaline Phosphatase 60 U/L (38-126); Anion Gap 3 mmol/L (8-16); Aspartate Amino Transferase 36 U/L (17-59); Bilirubin,Total 0.5 mg/dL (0.2-1.3); Blood Urea Nitrogen 17 mg/dL (9-20); Calcium 7.2 mg/dL (8.4-10.2); Carbon Dioxide 25 mmol/L (22-30); Chloride 109 mmol/L (98-107); Estimated CRCL calculation 119 ml/min; Estimated Glomerular Filt Rate > 60; Glucose 115 mg/dL (65-110); Potassium 3.5 mmol/L (3.4-5.0); Sodium 137 mmol/L (137-145)
[2023-03-29] MEDS: FLUTICASONE/SALMETEROL 115-21 MCG INHALER 1 PUFF 2 PUFF INHALATION ×2 (07:32→20:32)
[2023-03-29] MEDS: polyethylene glycoL 3350 17 GM POWD.PACK PO (08:19)
[2023-03-29] MEDS: ENOXAPARIN 40 MG/0.4 ML SYRINGE SUB-Q (08:19)
[2023-03-29 10:37] LABS: Transferrin 124 mg/dL (206-381)
[2023-03-29 10:48] LABS: Iron 51 ug/dL (49-181)
[2023-03-29 10:58] LABS: Percent Iron Saturation 25 % (20-50)
--- NOTE | 2023-03-29 11:30 | WPDNEUROPN ---
Progress Note: A&P Assessment and Plan (1) Altered mental status: Code(s): R41.82 - Altered mental status, unspecified Status: Acute (2) Status post spinal surgery: Code(s): Z98.890 - Other specified postprocedural states Status: Acute (3) Hypothyroidism: Code(s): E03.9 - Hypothyroidism, unspecified Status: Acute (4) Delirium: Code(s): R41.0 - Disorientation, unspecified Status: Acute Plan Ayden Butt is a 67 year old male with a history of COPD, JOSE, thyroid cancer s/p thyroidectomy, HN presenting from [facility] for altered mental status in the setting of recent spinal surgery. Etiology is broad at this point. Patient's neurosurgeon suspecting this is post-operative delirium. However, now that we are two weeks out from surgery, we are also considering underlying infection, medication effect, and stroke as possibilities. CT chest/abd showed fluid collection around the surgical area, which could be infectious in etiology, although he has remained afebrile and WBC has come down without use of antibiotics. TSH elevated to 9 which also could be contributing. Mental status seems to have improved since psychotropic medications were discontinued. - Would like to get an MRI brain when able, given the problems with speech, and questionable LUE weakness - Will continue to monitor mental status, may consider LP if he becomes more encephalopathic Subjective Date/time seen: 03/29/23 11:30 Interval history: Ayden Butt is a 67 year old male with a history of COPD, JOSE, thyroid cancer s/p thyroidectomy, HN [facility]. Of note, patient was in rehab after having surgery on 03/14 at [facility] for C2-T5 fusion with decompression and C3 through C7-T3 laminectomy for resection of a tumor, and T3 vertebral body bone open biopsy. reports that patient has been confused since his surgery and has not been back to baseline. He was unable to hold a conversation, having hallucinations, agitated/aggressive. He was not sleeping well at rehab either. He received Seroquel and Zyprexa during his rehab stay. When he was brought to [facility] he was afebrile with stable vitals. His labs were significant for leukocytosis, which has gone up to 19.1 during this admission. CXR and UA not concerning for infection. CT head was negative for acute process. TSH elevated to 9.760. CT of the chest/abdomen/pelvis done which showed [id number] fluid collection posterior to C/T spine suggestive of seroma vs hematoma, although abscess cannot be excluded. Unfortunately he cannot have MRI currently due to the surgical cherise that were placed. The hospitalist discontinued psychotropic medications, and patient actually appears to be more alert and communicative today. He continues to have some word salad' while speaking to members of the medical team. His WBC has come down to 11.7 today, without the use of any antibiotics. He has also remained afebrile. Very tangential speech, alert today but thinks he is [place] [employer]. He did remember me from yesterday. Review of Systems Constitutional: Constitutional: Denies chills, Denies fever(s) and Denies weight loss Eyes: Eyes: Denies diplopia and Denies loss of vision ENT: Denies dizziness, Denies hearing loss and Denies tinnitus Cardiovascular: Cardiovascular: Denies chest pain, Denies syncope and Denies dyspnea Respiratory: Respiratory: Denies cough, Denies dyspnea and Denies wheezing Gastrointestinal: Gastrointestinal: Denies abdominal pain, Denies change in bowel habits, Reports constipation and Denies vomiting Genitourinary: Genitourinary: Denies urinary incontinence Musculoskeletal: Musculoskeletal: Reports back pain, Reports arthralgias and Denies joint swelling Integumentary/Breasts: Skin/Breast: Denies new lesions and Denies rash Neurologic: Reports as per HPI, Denies dizziness, Denies syncope and Denies loss of vision P
[2023-03-29 11:34] LABS: Folic Acid 10.1 ng/mL (2.76->20)
[2023-03-29 12:20] LABS: Free T4 Free Thyroxine Reflex 1.01 ng/dL (0.78-2.19)
--- NOTE | 2023-03-29 14:49 | PM.IMPN ---
Progress Note: A&P Assessment and Plan (1) Altered mental status: Code(s): R41.82 - Altered mental status, unspecified Status: Acute Assessment and Plan: Patient has had spine surgery on 03/14/23 at [facility] in [place], patient has an incision from neck to midthoracic with cherise that are open to air, incision well approximated, no redness or drainage noted, white blood cell count today was 17.6, procalcitonin was 0.1. WBC may be due to inflammatory response however bacterial and viral infection cannot be ruled out as the patient is still altered. Patient with elevated white count without evidence of infection. Urine, CT head and CXR clear. UA only showed 1+ ketones, 1+ bili, no culture indicated No hx of alcohol or drug abuse. Patient has history of COPD and pCO2 on overnight ABG was 34.0, serum carbon dioxide 21 so we can rule out CO2 retention. We checked an ammonia level which was less than 9, liver enzymes were essentially normal so we can rule out hepatic encephalopathy CT chest, abdomen, pelvis, cervical, thoracic and lumbar showing a 12 x 4.1 x 16.4 cm fluid collection in the posterior cervical and thoracic spine area most likely consistent with seroma versus hematoma but abscess cannot be excluded. Neurology consulted appreciate recommendations. (2) Hypothyroidism: Code(s): E03.9 - Hypothyroidism, unspecified Status: Acute Assessment and Plan: Patient has history of thyroid cancer with resection done January of this year. Continue Synthroid (3) Obstructive sleep apnea: Code(s): G47.33 - Obstructive sleep apnea (adult) (pediatric) Status: Acute Assessment and Plan: Patient currently on room air PCO2 34.0, concurrently not retaining any CO2 (4) Leukocytosis: Code(s): D72.829 - Elevated white blood cell count, unspecified Status: Acute Assessment and Plan: WBC 11.7 today Blood cultures No growth to date Procalcitonin 0.1, patient currently not on antibiotics Spinal incision without redness, swelling, drainage. Incision well approximated with cherise. No signs of infection. 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 Subjective Date/time seen: 03/29/23 14:49 Interval history: patient appears a bit more confused today but not sure if this is because his is not the room redirecting him or not. Patient did know who I was. He believed that he was on [employer] when I spoke with him. Patient's white count continues to trend downward. Patient working with PT and OT. Patient does not seem like he is significantly improving although he is not getting any worse. Patient is aware of year, month and president. He is also aware that he is about to have his wedding anniversary. He is not sure where he is or why he is here. Exam Narrative: GENERAL: Comfortable, no acute distress HENMT: moist mucous membranes EYES: EOM intact b/l NECK: no lymphadenopathy RESPIRATORY: clear to auscultation CARDIO: RRR GI: soft, nontender, bowel sounds present SKIN: no rashes EXTREMITIES: no redness, tenderness; 2+ pitting edema of lower extremities. BACK: Well-healing surgical incision from the middle of the neck to her thoracic spine with cherise in place. Minimal redness and skin is a nice pink color without drainage or swelling. Tremor noticed in bilateral hands. Objective Data Vital Signs María Elena
[2023-03-29] MEDS: ACETAMINOPHEN 325 MG TABLET 650 MG PO (17:49)
[2023-03-29 17:52] LABS: Basophils Percent Auto 0.3 % (0.2-1.2); Eosinophils Absolute Auto 0.1 K/mm3 (0-0.3); Eosinophils Percent Auto 0.6 % (0-4.4); Hematocrit 22.8 % (42.0-52.0); Immature Granulocyte Absolute 0.18 K/mm3 (0.00-0.031); Immature Granulocyte Percent A 1.3 % (0-0.5); Lymphocytes Absolute Auto 1.57 K/mm3 (0.9-3.2); Lymphocytes Percent Auto 11.6 % (18.3-44.2); Mean Corpuscular HGB Conc 30.7 g/dl (32-36); Mean Corpuscular Hemoglobin 30.3 pg (26-34); Mean Corpuscular Volume 98.7 fl (80-100); Mean Platelet Volume 9.8 fl (7.4-10.4); Monocytes Absolute Auto 0.9 K/mm3 (0.1-0.6); Monocytes Percent Auto 6.9 % (2.6-8.5); Neutrophils Absolute Auto 10.8 K/mm3 (1.3-6.7); Neutrophils Percent Auto 79.3 % (45.5-73.1); Platelet Count Result 401 k/mm3 (150-375); Red Blood Count 2.31 M/mm3 (4.6-6.20); Red Cell Distribution Width 13.1 % (11.5-14.5); White Blood Count 13.6 K/mm3 (4.5-10.0)
[2023-03-29 18:08] LABS: Alanine Aminotransferase 41 U/L (6-50); Albumin Level 2.6 g/dL (3.5-5.1); Alkaline Phosphatase 57 U/L (38-126); Anion Gap 3 mmol/L (8-16); Aspartate Amino Transferase 30 U/L (17-59); Bilirubin,Total 0.4 mg/dL (0.2-1.3); Blood Urea Nitrogen 31 mg/dL (9-20); Calcium 7.3 mg/dL (8.4-10.2); Carbon Dioxide 24 mmol/L (22-30); Chloride 110 mmol/L (98-107); Estimated CRCL calculation 91 ml/min; Estimated Glomerular Filt Rate > 60; Glucose 104 mg/dL (65-110); Potassium 3.7 mmol/L (3.4-5.0); Sodium 137 mmol/L (137-145)
[2023-03-29] MEDS: MELATONIN 3 MG TABLET 9 MG PO (21:39)
[2023-03-29] MEDS: SODIUM CHLORIDE 0.9% IV 250 ML 30 ML IV CONT (21:41)
[2023-03-30] VITALS (14 sets, daily range): BP systolic 99–125; BP diastolic 53–79; PULSE 65–90; RESP 16–18; TEMP 36.3–37; O2SAT 97–100
[2023-03-30] MEDS: HALOPERIDOL LACTATE 5 MG/ML VIAL IM (00:18)
[2023-03-30 01:31] LABS: Hematocrit 21.6 % (42.0-52.0)
[2023-03-30 02:17] LABS: Hemoglobin 6.9 g/dL (14.0-18.0)
[2023-03-30 02:31] LABS: IFOB Positive Control Positive; Immunochemical Fecal Occult Bl Positive (N)
[2023-03-30] MEDS: LEVOTHYROXINE SODIUM 25 MCG TABLET PO (07:22)
[2023-03-30] MEDS: LEVOTHYROXINE SODIUM 112 MCG TABLET PO (07:22)
[2023-03-30] MEDS: FLUTICASONE/SALMETEROL 115-21 MCG INHALER 1 PUFF 2 PUFF INHALATION (07:32)
[2023-03-30] MEDS: IBUPROFEN 600 MG TABLET PO (07:39)
[2023-03-30 08:16] LABS: Hematocrit 22.2 % (42.0-52.0)
[2023-03-30 08:24] LABS: Hemoglobin 6.8 g/dL (14.0-18.0)
[2023-03-30 08:56] LABS: Basophils Percent Auto 0.3 % (0.2-1.2); Eosinophils Percent Auto 0.3 % (0-4.4); Immature Granulocyte Absolute 0.27 K/mm3 (0.00-0.031); Immature Granulocyte Percent A 1.9 % (0-0.5); Lymphocytes Absolute Auto 1.41 K/mm3 (0.9-3.2); Lymphocytes Percent Auto 9.8 % (18.3-44.2); Mean Corpuscular HGB Conc 31.1 g/dl (32-36); Mean Corpuscular Hemoglobin 31.1 pg (26-34); Mean Platelet Volume 10.4 fl (7.4-10.4); Monocytes Absolute Auto 1.2 K/mm3 (0.1-0.6); Monocytes Percent Auto 8.3 % (2.6-8.5); Neutrophils Absolute Auto 11.5 K/mm3 (1.3-6.7); Neutrophils Percent Auto 79.4 % (45.5-73.1); Nucleated Red Blood Cells Perc 0.1 % (0.0-0.2); Platelet Count Result 372 k/mm3 (150-375); Red Blood Count 2.19 M/mm3 (4.6-6.20); Red Cell Distribution Width 14.6 % (11.5-14.5); White Blood Count 14.4 K/mm3 (4.5-10.0)
[2023-03-30 09:26] LABS: Alanine Aminotransferase 34 U/L (6-50); Albumin Level 2.4 g/dL (3.5-5.1); Alkaline Phosphatase 52 U/L (38-126); Anion Gap 5 mmol/L (8-16); Aspartate Amino Transferase 30 U/L (17-59); Bilirubin,Total 0.5 mg/dL (0.2-1.3); Blood Urea Nitrogen 37 mg/dL (9-20); Calcium 7.1 mg/dL (8.4-10.2); Carbon Dioxide 21 mmol/L (22-30); Chloride 111 mmol/L (98-107); Estimated CRCL calculation 90 ml/min; Estimated Glomerular Filt Rate > 60; Glucose 130 mg/dL (65-110); Potassium 3.5 mmol/L (3.4-5.0); Sodium 137 mmol/L (137-145)
[2023-03-30 09:44] LABS: CRP 1.6 mg/dL (<1.0)
[2023-03-30] MEDS: SODIUM CHLORIDE 0.9% IV 250 ML 30 ML IV CONT (09:44)
--- NOTE | 2023-03-30 10:14 | WPDNEUROPN ---
Progress Note: A&P Assessment and Plan (1) Altered mental status: Code(s): R41.82 - Altered mental status, unspecified Status: Acute (2) Status post spinal surgery: Code(s): Z98.890 - Other specified postprocedural states Status: Acute (3) Hypothyroidism: Code(s): E03.9 - Hypothyroidism, unspecified Status: Acute (4) Delirium: Code(s): R41.0 - Disorientation, unspecified Status: Acute Plan Ayden Butt is a 67 year old male with a history of COPD, JOSE, thyroid cancer s/p thyroidectomy, HN presenting from [facility] for altered mental status in the setting of recent spinal surgery. Etiology is broad at this point. Patient's neurosurgeon suspecting this is post-operative delirium. However, now that we are two weeks out from surgery, we are also considering underlying infection, medication effect, and stroke as possibilities. CT chest/abd showed fluid collection around the surgical area, which could be infectious in etiology, WBC uptrending again. TSH elevated to 9 which also could be contributing. Course has now also been complicated by anemia due to presumed blood loss from undetermined site. - MRI brain and cervical/thoracic spine with and without contrast has been ordered - Hospitalist is working on getting patient transferred to higher level of care Subjective Date/time seen: 03/30/23 10:14 Interval history: Ayden Butt is a 67 year old male with a history of COPD, JOSE, thyroid cancer s/p thyroidectomy, HN presenting from [facility] for altered mental status. Of note, patient was in rehab after having surgery on 03/14 at [facility] for C2-T5 fusion with decompression and C3 through C7-T3 laminectomy for resection of a tumor, and T3 vertebral body bone open biopsy. reports that patient has been confused since his surgery and has not been back to baseline. He was unable to hold a conversation, having hallucinations, agitated/aggressive. He was not sleeping well at rehab either. He received Seroquel and Zyprexa during his rehab stay. When he was brought to [facility] he was afebrile with stable vitals. His labs were significant for leukocytosis, which has gone up to 19.1 during this admission. CXR and UA not concerning for infection. CT head was negative for acute process. TSH elevated to 9.760. CT of the chest/abdomen/pelvis done which showed [id number] fluid collection posterior to C/T spine suggestive of seroma vs hematoma, although abscess cannot be excluded. Unfortunately he cannot have MRI currently due to the surgical cherise that were placed. The hospitalist discontinued psychotropic medications, which initially seemed to help with his mental status. His WBC is elevated to 14.7, but he remained afebrile. MRI of brain, cervical, thoracic spine with and without contrast has been ordered. Other concerns have been significant anemia despite transfusions, fecal occult is positive. Hospitalist is working on trying to get patient transferred to higher level of care. Review of Systems Review of Systems: ROS unobtainable: Yes unobtainable due to mental status Exam Const: General: comfortable and no acute distress Other: very confused HENMT: Mouth: Yes moist mucous membranes Eyes: Pupils: Equal, round and reactive pupils present EOM: EOMs intact bilaterally Resp: Effort & Inspection: normal respiratory effort Skin: General skin exam: normal color Neuro: Other: AOx1 only to self, face symmetric, facial sensation intact, tongue protrudes midline, palate midline. Shoulder shrug normal. Strength 5/5 in RUE, 4/5 L shoulder abduction, but distal LUE strength intact, strength in bilateral lower extremities is symmetric. Sensation intact in face and extremities. Drowsy, but arousable. Garbled speech, comprehension appears to be intact. Gait deferred. Extrem: General: edema Objective Data Vital Signs Vital Signs: Vital Signs - 24 hr 03/29/23 10:30 03/29/23 14
[2023-03-30 11:00] LABS: Alveolar/Arterial O2 Gradient 32.1 mmHg; Base Excess ABG -1.5 mEq/l (+/-2.0); Fractional Inspired Oxygen 21 %; HCO3 ABG 21.7 mEq/l (22.0-26.0); Oxygen Content ABG 10.9 %vol (16.0-22.0); Oxygen Saturation ABG 96.7 % (95.0-100.0); Oxyhemoglobin 93.7 % THb (90.0-100.0); PCO2 ABG 30.5 mmHg (35.0-45.0); PO2 ABG 81.1 mmHg (80.0-100.0); PO2 FiO2 Ratio Arterial Blood 3.86 %; Total Hemoglobin 8.2 g/dL (12.0-18.0); pH ABG 7.471 (7.350-7.450)
[2023-03-30 11:08] LABS: Device ROOM AIR; Modified Allen's Test Pass; Site Drawn RIGHT RADIAL
[2023-03-30] MEDS: FERROUS SULFATE 325 MG TABLET DR PO (12:12)
[2023-03-30] MEDS: MULTIVITAMINS THERAPEUTIC TAB (*BKC) 1 TABLET PO (12:12)
[2023-03-30] MEDS: PANTOPRAZOLE SODIUM IV 40 MG VIAL IV PUSH (12:13)
--- NOTE | 2023-03-30 12:16 | PCOTNOTE ---
Per RN, pt is not appropriate for Occupational Therapy treatment today due to low Hgb. Will continue per poc duration/frequency tomorrow.
[2023-03-30 13:41] LABS: Hematocrit 25.3 % (42.0-52.0); Hemoglobin 7.9 g/dL (14.0-18.0)
--- NOTE | 2023-03-30 14:08 | P.TS_ITS ---
Transfer Discharge Sum: Prov Provider Date of admission: 03/26/23 11:02 Primary care physician: Matty Suggs MD Admitting clinician: Ashlee Navarrete DO Consults: 03/27/23 14:07 Consult to Physician Routine Comment: Spoke to 03/27/23 @ [phone] (,) Consulting Provider: Sea Rosas supervisor computer operations/MD group to consult: neurology Reason for consultation: acute delirium Has provider been notified: Yes 03/29/23 Consult to Dietitian Routine Reason for Consult:: Not eating well, poor nutritional status 03/30/23 07:46 Consult to Physician Routine Comment: Consulting Provider: supervisor computer operations/MD group to consult: GI Reason for consultation: positive stool, anemia Has provider been notified: No DS: Admitting Diagnosis Discharge Date 03/30/23 Admitting Diagnosis Acute metabolic encephalopathy. DS: Discharge Diagnosis Discharge Diagnosis (1) Altered mental status: Code(s): R41.82 - Altered mental status, unspecified Status: Acute Assessment and Plan: Patient has had spine surgery on 03/14/23 at [facility] in [place], patient has an incision from neck to midthoracic with cherise that are open to air, incision well approximated, no redness or drainage noted, white blood cell count today was 17.6, procalcitonin was 0.1. WBC may be due to inflammatory response however bacterial and viral infection cannot be ruled out as the patient is still altered. * Patient with elevated white count without evidence of infection. Urine, CT head and CXR clear. * UA only showed 1+ ketones, 1+ bili, no culture indicated * No hx of alcohol or drug abuse. * Patient has history of COPD and pCO2 on overnight ABG was 34.0, serum carbon dioxide 21 so we can rule out CO2 retention. * We checked an ammonia level which was less than 9, liver enzymes were essentially normal so we can rule out hepatic encephalopathy * CT chest, abdomen, pelvis, cervical, thoracic and lumbar showing a 12 x 4.1 x 16.4 cm fluid collection in the posterior cervical and thoracic spine area most likely consistent with seroma versus hematoma but abscess cannot be excluded. * Neurology consulted appreciate recommendations. (2) Hypothyroidism: Code(s): E03.9 - Hypothyroidism, unspecified Status: Acute Assessment and Plan: * Patient has history of thyroid cancer with resection done January of this year. * Continue Synthroid (3) Obstructive sleep apnea: Code(s): G47.33 - Obstructive sleep apnea (adult) (pediatric) Status: Acute Assessment and Plan: * Patient currently on room air * PCO2 34.0, concurrently not retaining any CO2 (4) Leukocytosis: Code(s): D72.829 - Elevated white blood cell count, unspecified Status: Acute Assessment and Plan: * WBC 11.7 today * Blood cultures No growth to date * Procalcitonin 0.1, patient currently not on antibiotics * Spinal incision without redness, swelling, drainage. Incision well approximated with cherise. No signs of infection. (5) Status post spinal surgery: Code(s): Z98.890 - Other specified postprocedural states Status: Acute Assessment and Plan: Patient underwent elective spinal surgery on 03/14/2023 at [facility] in [place] which included CT-T5 posterior instrumentation fusion with decompression,-C3 through C7 T3 laminectomy for resection of tumor, and T3
--- NOTE | 2023-03-30 14:08 | PM.TDS ---
Transfer Discharge Sum: Prov Provider Date of admission: 03/26/23 11:02 Primary care physician: Matty Suggs MD Admitting clinician: Ashlee Navarrete DO Consults: 03/27/23 14:07 Consult to Physician Routine Comment: Spoke to 03/27/23 @ [phone] (,) Consulting Provider: Sea Rosas call worker/MD group to consult: neurology Reason for consultation: acute delirium Has provider been notified: Yes 03/29/23 Consult to Dietitian Routine Reason for Consult:: Not eating well, poor nutritional status 03/30/23 07:46 Consult to Physician Routine Comment: Consulting Provider: call worker/MD group to consult: GI Reason for consultation: positive stool, anemia Has provider been notified: No DS: Admitting Diagnosis Discharge Date 03/30/23 Admitting Diagnosis Acute metabolic encephalopathy. DS: Discharge Diagnosis Discharge Diagnosis (1) Altered mental status: Code(s): R41.82 - Altered mental status, unspecified Status: Acute Assessment and Plan: Patient has had spine surgery on 03/14/23 at [facility] in [place], patient has an incision from neck to midthoracic with cherise that are open to air, incision well approximated, no redness or drainage noted, white blood cell count today was 17.6, procalcitonin was 0.1. WBC may be due to inflammatory response however bacterial and viral infection cannot be ruled out as the patient is still altered. Patient with elevated white count without evidence of infection. Urine, CT head and CXR clear. UA only showed 1+ ketones, 1+ bili, no culture indicated No hx of alcohol or drug abuse. Patient has history of COPD and pCO2 on overnight ABG was 34.0, serum carbon dioxide 21 so we can rule out CO2 retention. We checked an ammonia level which was less than 9, liver enzymes were essentially normal so we can rule out hepatic encephalopathy CT chest, abdomen, pelvis, cervical, thoracic and lumbar showing a 12 x 4.1 x 16.4 cm fluid collection in the posterior cervical and thoracic spine area most likely consistent with seroma versus hematoma but abscess cannot be excluded. Neurology consulted appreciate recommendations. (2) Hypothyroidism: Code(s): E03.9 - Hypothyroidism, unspecified Status: Acute Assessment and Plan: Patient has history of thyroid cancer with resection done January of this year. Continue Synthroid (3) Obstructive sleep apnea: Code(s): G47.33 - Obstructive sleep apnea (adult) (pediatric) Status: Acute Assessment and Plan: Patient currently on room air PCO2 34.0, concurrently not retaining any CO2 (4) Leukocytosis: Code(s): D72.829 - Elevated white blood cell count, unspecified Status: Acute Assessment and Plan: WBC 11.7 today Blood cultures No growth to date Procalcitonin 0.1, patient currently not on antibiotics Spinal incision without redness, swelling, drainage. Incision well approximated with cherise. No signs of infection. 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 Transfer Discharge Sum: Med Medications Active and Home Medications: Home Medications budesonide-formoterol HFA 160 mcg-4.5 mcg/actuation aerosol inhaler (Symbicort) 2 puff inhalation Q12H 03/21/23 [History Confirmed 03/25/23] multivitamin 1 tablet PO DAILY 03/21/23 [History Confirmed 03/25/23] acetaminophen 650 mg tablet 650 mg PO Q6H PRN Pain (Scale Scor
[2023-03-30 15:05] LABS: Lactic Acid Reflex 0.9 mmol/L (0.7-2.0)
== END 2023-03-30 16:00 | disposition short-term general hospital (02) | DRG 920 ==
LOC: ANHED 18:41 → ANH3MED 20:15
PROVIDERS: Nurse Practitioner Acute Care; Physician Assistant; Admitting Provider Student in an Organized Health Care Education/Training Program; Emergency Provider Emergency Medicine; PCP Hospitalist; Visit Provider Internal Medicine Critical Care Medicine
DX: T81.89XA Other complications of procedures, not elsewhere classified, initial encounter (principal); F05 Delirium due to known physiological condition; D62 Acute posthemorrhagic anemia; R41.82 Altered mental status, unspecified; T43.595A Adverse effect of other antipsychotics and neuroleptics, initial encounter; T43.215A Adverse effect of selective serotonin and norepinephrine reuptake inhibitors, initial encounter; D72.829 Elevated white blood cell count, unspecified; K26.9 Duodenal ulcer, unspecified as acute or chronic, without hemorrhage or perforation; R19.5 Other fecal abnormalities; E03.9 Hypothyroidism, unspecified; G47.33 Obstructive sleep apnea (adult) (pediatric); J44.9 Chronic obstructive pulmonary disease, unspecified; Z98.890 Other specified postprocedural states; Z98.1 Arthrodesis status; Z85.850 Personal history of malignant neoplasm of thyroid
CPT/HCPCS: 36415; 36430; 36600; 70450; 70491; 71045; 71260; 72129; 74176; 74177; 80053; 80307; 81001; 82140; 82274; 82375; 82607; 82728; 82746; 82805; 83050; 83540; 83550; 83605; 83735; 83880; 84145; 84439; 84443; 84466; 84480; 85014; 85018; 85025; 85027; 85610; 85730; 86140; 86850; 86900; 86901; 86923; 87040; 93005; 93306; 94640; 94660; 96360; 96361; 96372; 97110; 97162; 97166; 97530; 97535; 99285; A9270; C9113; G0378; J1630; J1650; J7030; J7042; J7050; P9016; Q9967

== ENCOUNTER 2023-09-18 08:45 | Outpatient (RCR) | payer MEDICARE, SELFPAY ==
--- NOTE | 2023-06-21 11:11 | PTOPEVAL1 ---
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 He has been able to use the walker for short distances. He has been doing home health but wants to push a little harder. He was independent prior to his thyroid and bck surgery. He has been using a walker since November. Would like to be independent again. Reported Pain Level Pain Score 0: Self Report Assessment PT Clinical Summary Patient presents with significant weakness, poor coordination, and proprioception of madhav LE and hips at this time. Also showing functional deficits in L shoulder strength which is currently needed to assist with balance and self care. He demonstrates as high fall risk and will benefit from skilled therapy to address these deficits to improve gross mobility,. stabilization with ADLs and overall motor function. Plan of Care Interventions Gait Training,Manual Therapy,Neuro Re-education, Therapeutic Activities,Therapeutic Exercise,Self- Care/Home Management PT Services Indicated Yes Treatment Frequency and 2x/week for 10 visits Duration These treatments will address the objective and functional deficits as defined above. The patient will be advanced safely and appropriately in order for the patient to progress towards his/her prior level of function. Additional exercises will be introduced and as well as a comprehensive home exercise program upon discharge, if needed, ?to ensure carryover of functional gains achieved in the clinic. This treatment plan has been reviewed and agreement upon by the patient.
--- NOTE | 2023-06-21 11:11 | OPREHPOC ---
Outpatient Therapy Plan of Care This is a Multidisciplinary Plan of Care that may contain components documented by all disciplines (PT, OT, and ST.) PT Problem 1 PT Problem #1 Knowledge Deficit PT Goal 1 Goal Independent with HEp for glute strengthening supine and seated Target Visit 5 PT Problem 2 PT Problem #2 Impaired Strength PT Goal 1 Goal Improve madhav hip flexion strength to 4+/5 to improve foot clearencewith steps and gait Target Visit 10 PT Goal 2 Goal Improve madhav hip abduction strength to 4+/5 to improve lateral stability with gait and transfers Target Visit 10 PT Problem 3 PT Problem #3 Impaired Gait PT Goal 1 Goal Improve Tinetti balance score by 9 point to reduce fall risk with ambulation and ADL performance PT Goal 2 Goal Demonstrate 300' ambulation with no loss of balance in 2 minute walk test to improve gait, amina, and reduce fall risk. Target Visit 10 PT Problem 4 PT Problem #4 Impaired Balance PT Goal 1 Goal Demonstrate ability to maintain balance on uneven surface without loss of balance for 30s to improve proprioception and vestibular control Target Visit 10
--- NOTE | 2023-06-28 11:46 | PCPTNOTE ---
Patient canceled due to weather.
--- NOTE | 2023-07-02 08:31 | PCPTNOTE ---
Patient called & cancelled scheduled appointment this date due to inclement weather.
--- NOTE | 2023-07-02 11:03 | PCPTNOTE ---
Cancelled today's session due to weather.
--- NOTE | 2023-07-23 12:00 | PTOPPROG ---
Assessment and note entered by Damian Trujillo, PT Evaluation Information Assessment Status Progress Diagnosis LE weakness, functional decline, History of spinal surgery Onset 03/14/23 Subjective Information Reports that the has been doing home healthcare for a couple of weeks. 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 He has been able to use the walker for short distances. He has been doing home health but wants to push a little harder. He was independent prior to his thyroid and bck surgery. He has been using a walker since November. Would like to be independent again. Assessment PT Clinical Summary Patient has made significant progress in strength, balance, and mobility at this time. We saw significant improvement in gait speed, Tinetti score, and functional transfer ability at this time. Will continue to benefit from skilled therapy to address deficits at this time. Plan of Care Interventions Gait Training,Manual Therapy,Neuro Re-education, Therapeutic Activities,Therapeutic Exercise,Self- Care/Home Management PT Services Indicated Yes Treatment Frequency and 2x/week for 10 visits Duration These treatments will address the objective and functional deficits as defined above. The patient will be advanced safely and appropriately in order for the patient to progress towards his/her prior level of function. Additional exercises will be introduced and as well as a comprehensive home exercise program upon discharge, if needed, ?to ensure carryover of functional gains achieved in the clinic. This treatment plan has been reviewed and agreement upon by the patient.
--- NOTE | 2023-07-23 12:00 | OPREHPOC ---
Outpatient Therapy Plan of Care This is a Multidisciplinary Plan of Care that may contain components documented by all disciplines (PT, OT, and ST.) PT Problem 1 PT Problem #1 Knowledge Deficit PT Goal 1 Goal Independent with HEp for glute strengthening supine and seated Target Visit 5 Progress Met PT Problem 2 PT Problem #2 Impaired Strength PT Goal 1 Goal Improve madhav hip flexion strength to 4+/5 to improve foot clearencewith steps and gait Target Visit 10 Progress Partially Met PT Goal 2 Goal Improve madhav hip abduction strength to 4+/5 to improve lateral stability with gait and transfers Target Visit 20 Progress Partially Met PT Problem 3 PT Problem #3 Impaired Gait PT Goal 1 Goal Improve Tinetti balance score by 9 point to reduce fall risk with ambulation and ADL performance Target Visit 20 Progress Partially Met Comment Updated: Increase Tinetti score to >23 PT Goal 2 Goal Demonstrate 300' ambulation with no loss of balance in 2 minute walk test to improve gait, amina, and reduce fall risk. Target Visit 10 Progress Met PT Problem 4 PT Problem #4 Impaired Balance PT Goal 1 Goal Demonstrate ability to maintain balance on uneven surface without loss of balance for 30s to improve proprioception and vestibular control Target Visit 20 Progress Partially Met PT Problem 5 PT Problem #5 Impaired Gait PT Goal 1 Goal Ambulate 100' with single point cane for improved functional independence Target Visit 20
--- NOTE | 2023-08-27 13:04 | PTOPPROG ---
Assessment and note entered by Damian Trujillo, PT Evaluation Information Assessment Status Progress Diagnosis LE weakness, functional decline, History of spinal surgery Onset 03/14/23 Subjective Information Reports that he has been trying to push himself a little more. Wants to get back to walking independently and going up and down stairs. Concerned with being able to help his as she recovers from shoulder surgery. Assessment PT Clinical Summary Patient has seen some progress in leg strength, gait, balance, and overall function. Continue s to show as a moderate to high fall risk and very dependent on walker fo mobility. Having difficulty with coordination and proprioception. Plan of Care Interventions Gait Training,Manual Therapy,Neuro Re-education, Therapeutic Activities,Therapeutic Exercise,Self- Care/Home Management PT Services Indicated Yes Treatment Frequency and 2x/week for 8 visits Duration These treatments will address the objective and functional deficits as defined above. The patient will be advanced safely and appropriately in order for the patient to progress towards his/her prior level of function. Additional exercises will be introduced and as well as a comprehensive home exercise program upon discharge, if needed, ?to ensure carryover of functional gains achieved in the clinic. This treatment plan has been reviewed and agreement upon by the patient.
--- NOTE | 2023-08-27 13:04 | OPREHPOC ---
Outpatient Therapy Plan of Care This is a Multidisciplinary Plan of Care that may contain components documented by all disciplines (PT, OT, and ST.) PT Problem 1 PT Problem #1 Knowledge Deficit PT Goal 1 Goal Independent with HEp for glute strengthening supine and seated Target Visit 5 Progress Met PT Problem 2 PT Problem #2 Impaired Strength PT Goal 1 Goal Improve madhav hip flexion strength to 4+/5 to improve foot clearencewith steps and gait Target Visit 10 Progress Partially Met PT Goal 2 Goal Improve madhav hip abduction strength to 4+/5 to improve lateral stability with gait and transfers Target Visit 26 Progress Partially Met PT Problem 3 PT Problem #3 Impaired Gait PT Goal 1 Goal Improve Tinetti balance score by 9 point to reduce fall risk with ambulation and ADL performance Target Visit 26 Progress Partially Met Comment Updated: Increase Tinetti score to >23 PT Goal 2 Goal Demonstrate 300' ambulation with no loss of balance in 2 minute walk test to improve gait, amina, and reduce fall risk. Target Visit 10 Progress Met PT Problem 4 PT Problem #4 Impaired Balance PT Goal 1 Goal Demonstrate ability to maintain balance on uneven surface without loss of balance for 30s to improve proprioception and vestibular control Target Visit 26 Progress Partially Met PT Problem 5 PT Problem #5 Impaired Gait PT Goal 1 Goal Ambulate 100' with single point cane for improved functional independence Target Visit 26
== END 2023-09-18 15:06 | disposition still patient (30) ==
LOC: ANHGOSHPT 08:45
PROVIDERS: PCP Hospitalist; Visit Provider Family Medicine
DX: Z86.73 Personal history of transient ischemic attack (TIA), and cerebral infarction without residual deficits (principal)
CPT/HCPCS: 97110; 97112; 97116; 97161; 97530; 97750

== ENCOUNTER 2023-12-18 09:30 | Outpatient (RCR) | payer MEDICARE, SELFPAY ==
--- NOTE | 2023-09-27 08:34 | PCPTNOTE ---
Treatment carried forward from #[id number]
--- NOTE | 2023-09-27 11:49 | PTOPPROG ---
Assessment and note entered by Damian Trujillo, PT Evaluation Information Assessment Status Progress Diagnosis LE weakness, functional decline, history of spinal surgery Onset 03/14/23 Subjective Information Reports that he has been getting much more comfortable with stairs. He has been more active with walking outside as the weather has greatly improved. Feels he has been more active overall. reports that she is still very uncomfortable with him going up and down stairs but he would like to. Feels he still has a lot of weakness in his hip. Assessment PT Clinical Summary Patient has made significant strides with gait and balance at this point with significant progress in gait cycle and Tinetti score. He continues to show objective and subjective improvement. Will continue to benefit from skilled therapy to work on improving hip strength, vestibular balance, and functional stability with gait and ADLs. Plan of Care PT Services Indicated Yes These treatments will address the objective and functional deficits as defined above. The patient will be advanced safely and appropriately in order for the patient to progress towards his/her prior level of function. Additional exercises will be introduced and as well as a comprehensive home exercise program upon discharge, if needed, ?to ensure carryover of functional gains achieved in the clinic. This treatment plan has been reviewed and agreement upon by the patient.
--- NOTE | 2023-09-27 11:49 | OPREHPOC ---
Outpatient Therapy Plan of Care This is a Multidisciplinary Plan of Care that may contain components documented by all disciplines (PT, OT, and ST.) PT Problem 1 PT Problem #1 Knowledge Deficit PT Goal 1 Goal Independent with HEP Target Visit 8 Progress Met PT Problem 2 PT Problem #2 Impaired Strength PT Goal 1 Goal Improve madhav hip flexion strength to 5/5 to improve foot clearance with gait and ADLs Target Visit 34 Progress Partially Met PT Goal 2 Goal Improve madhav hip abduction to 4+/5 to improve lateral stability with ADLs Target Visit 34 Progress Partially Met PT Problem 3 PT Problem #3 Impaired Gait PT Goal 1 Goal Patient will improve Tinetti score to to place in minimal fall risk category Target Visit 34 Progress Partially Met Comment Improving in positive direction. this date Initially 06/13 PT Goal 2 Goal Ambulate with even stride length and no striking of rear legs of walker for 500' or greater Target Visit 34 Progress Partially Met PT Problem 4 PT Problem #4 Impaired Balance PT Goal 1 Goal Maintain balance on uneven surface with outside force without Loss of balance for functional reaching stabilization and fall reduction Target Visit 34 PT Goal 2 Goal Ambulate 100' with single point cane for improved in home functional independence Target Visit 34 Comment Progressing with improve gait and Tinetti scores. Will emphasize moving forward.
--- NOTE | 2023-10-25 09:37 | OPREHPOC ---
Outpatient Therapy Plan of Care This is a Multidisciplinary Plan of Care that may contain components documented by all disciplines (PT, OT, and ST.) PT Problem 1 PT Problem #1 Knowledge Deficit PT Goal 1 Goal Independent with HEP Target Visit 8 Progress Met PT Problem 2 PT Problem #2 Impaired Strength PT Goal 1 Goal Improve madhav hip flexion strength to 5/5 to improve foot clearance with gait and ADLs Target Visit 42 Progress Partially Met PT Goal 2 Goal Improve madhav hip abduction to 4+/5 to improve lateral stability with ADLs Target Visit 42 Progress Partially Met PT Problem 3 PT Problem #3 Impaired Gait PT Goal 1 Goal Patient will improve Tinetti score to to place in minimal fall risk category Target Visit 42 Progress Partially Met Comment Improving in positive direction. this date Initially 06/13. Measured again at on PT Goal 2 Goal Ambulate with even stride length and no striking of rear legs of walker for 500' or greater Target Visit 42 Progress Partially Met Comment Continues to show walker strike with foot coordination. Increases fall risk. PT Problem 4 PT Problem #4 Impaired Balance PT Goal 1 Goal Maintain balance on uneven surface with outside force without Loss of balance for functional reaching stabilization and fall reduction Target Visit 34 Progress Met PT Goal 2 Goal Ambulate 100' with single point cane for improved in home functional independence Target Visit 42 Comment Able to walk with cane for 200' but episode of loss of balance noted and poor coordination.
--- NOTE | 2023-10-25 09:37 | PTOPPROG ---
Assessment and note entered by Damian Trujillo, PT Evaluation Information Assessment Status Progress Diagnosis LE weakness, functional decline, history of spinal surgery Onset 03/14/23 Subjective Information Reports that overall he feels he is doing better but does not think that he is hard enough on himself. Still wants to get a lot of his stamina and balance back as he feels those are significantly lacking. He has been working a lot on the single point cane to improve his independence. He has no problem with short sets of stairs into and out of the house but still does not feel capable of traversing stairs to the basement. Assessment PT Clinical Summary Patient continues to show improvement with therapy . He has significantly increased his 6 minute walk test with increased stability throughout. Has the stability and strength to continue to progress, but continues to show some difficulty with coordination of feet on turning and progressions. Patient will continue to benefit from skilled therapy to address deficits moving forward. Plan of Care PT Services Indicated Yes Treatment Frequency and 2x/week for 8 visits Duration These treatments will address the objective and functional deficits as defined above. The patient will be advanced safely and appropriately in order for the patient to progress towards his/her prior level of function. Additional exercises will be introduced and as well as a comprehensive home exercise program upon discharge, if needed, ?to ensure carryover of functional gains achieved in the clinic. This treatment plan has been reviewed and agreement upon by the patient.
--- NOTE | 2023-11-22 09:31 | OPREHPOC ---
Outpatient Therapy Plan of Care This is a Multidisciplinary Plan of Care that may contain components documented by all disciplines (PT, OT, and ST.) PT Problem 1 PT Problem #1 Knowledge Deficit PT Goal 1 Goal Independent with HEP Target Visit 8 Progress Met PT Problem 2 PT Problem #2 Impaired Strength PT Goal 1 Goal Improve madhav hip flexion strength to 5/5 to improve foot clearance with gait and ADLs Target Visit 50 Progress Partially Met PT Goal 2 Goal Improve madhav hip abduction to 4+/5 to improve lateral stability with ADLs Target Visit 50 Progress Partially Met PT Problem 3 PT Problem #3 Impaired Gait PT Goal 1 Goal Patient will improve Tinetti score to to place in minimal fall risk category Target Visit 50 Progress Partially Met Comment Improving in positive direction. this date Initially 06/13. Measured again at on . 11/21/24 improved to PT Goal 2 Goal Ambulate with even stride length and no striking of rear legs of walker for 500' or greater Target Visit 42 Progress Met Comment Met this date PT Problem 4 PT Problem #4 Impaired Balance PT Goal 1 Goal Maintain balance on uneven surface with outside force without Loss of balance for functional reaching stabilization and fall reduction Target Visit 34 Progress Met PT Goal 2 Goal Ambulate 100' with single point cane for improved in home functional independence Target Visit 42 Comment Able to walk with cane for 200' but episode of loss of balance noted and poor coordination.
--- NOTE | 2023-11-22 09:34 | PTOPPROG ---
Assessment and note entered by Damian Trujillo, PT Evaluation Information Assessment Status Progress Diagnosis LE weakness, functional decline, history of spinal surgery Onset 03/14/23 Subjective Information Reports that he has been doing more walking at home with walker. He does not feel comfortable at all with a cane and requested not to do it today. He feels he is ready to really push himself more and wants to build up his endurance. I recommended possibly buying a recumbent bike for home and he said he would look into it. Does not feel pain limits him, but fatigue. is still concerned about him on stairs and navigating around obstructions in home and community. Assessment PT Clinical Summary Patient was able to see some progress in Tinetti to a minor extent. He does not feel comfortable ambulating with a cane at this time. We did see substantial improvement in six minute walk test and he is demonstrating ability to independently transfer without requiring arms for stability and control. HE still shows a lot of room for improvement but needs a lot of encouragement to ensure that he is taking advantage of his time at home. I discussed with him and his purchasing a recumbent bike for cardiovascular endurance in home. Plan of Care PT Services Indicated Yes Treatment Frequency and 2x/week for 8 visits Duration These treatments will address the objective and functional deficits as defined above. The patient will be advanced safely and appropriately in order for the patient to progress towards his/her prior level of function. Additional exercises will be introduced and as well as a comprehensive home exercise program upon discharge, if needed, ?to ensure carryover of functional gains achieved in the clinic. This treatment plan has been reviewed and agreement upon by the patient.
--- NOTE | 2023-12-27 08:29 | PCPTNOTE ---
Patient case carrying forward to #[id number]
== END 2023-12-25 11:21 | disposition still patient (30) ==
LOC: ANHGOSHPT 09:30
PROVIDERS: PCP Hospitalist; Visit Provider Family Medicine
DX: Z86.73 Personal history of transient ischemic attack (TIA), and cerebral infarction without residual deficits (principal)
CPT/HCPCS: 97110; 97112; 97116; 97530; 97750; 99199

== ENCOUNTER 2024-02-07 09:15 | Outpatient (RCR) | payer MEDICARE, SELFPAY ==
--- NOTE | 2023-12-27 08:33 | PCPTNOTE ---
Patient care carrying forward from #[id number]
--- NOTE | 2023-12-27 17:33 | PTOPPROG ---
Assessment and note entered by Damian Trujillo, PT Evaluation Information Assessment Status Progress Diagnosis LE weakness, Functional decline, History of spinal surgery Onset 03/14/23 Subjective Information Reports that he has been a lot more active at home . Using wheeled walker exclusively and ambulating in community more often now. He has been working on transfers with weight shifting and stability. Reports that pain escalante he only has a bit of an ache in his back but nothing that is limiting him at this time from continuing to improve. He feels he has really been pushing himself and has a desire to get back to as independently functional as possible. is still very concerned with his balance but has been pushing him at home. Assessment PT Clinical Summary Mr. Butt has seen significant progress with therapy over the course of the past few months and he continues to show potential for progress. We have seen advancement in Tinetti balance score and 6 minute walk test with decreased dependence on assistive device and improve gait speed indicating reduced gross fall risk. Patient will continue to benefit from skilled therapy to address these deficits and focus on balance moving forward over the next couple of weeks of therapy. Plan of Care Interventions Gait Training,Neuro Re-education,Therapeutic Activities,Therapeutic Exercise PT Services Indicated Yes These treatments will address the objective and functional deficits as defined above. The patient will be advanced safely and appropriately in order for the patient to progress towards his/her prior level of function. Additional exercises will be introduced and as well as a comprehensive home exercise program upon discharge, if needed, ?to ensure carryover of functional gains achieved in the clinic. This treatment plan has been reviewed and agreement upon by the patient.
--- NOTE | 2024-01-14 09:00 | PCPTNOTE ---
Patient's called to cancel due to patient being sick.
--- NOTE | 2024-02-07 10:49 | PTOPDC ---
Assessment and note entered by Damian Trujillo, PT Evaluation Information Assessment Status Discharge Diagnosis LE weakness, Functional decline, History of spinal surgery Onset 03/14/23 Subjective Information Patient reports that he was able to do 40 laps in his house this weekend and has really been pushing himself at home as of late. Still has some soreness and stiffness but has been doing exercise consistently. Reported Pain Level Pain Score 0: Self Report Assessment PT Clinical Summary Patient has made considerable improvement at this time towards [facility] goals. At this point we had lengthy discussion about continued conditioning with the purchase of a Rolator and recumbent bike. Patient will discharge to [facility] and focus on daily conditioning with intention to return to therapy early next year when he is ready to progress to cane and improved independence. Patient has met all goals for therapy at this time with the exception of independent ambulation. Plan of Care PT Services Indicated D/C to [facility]
== END 2024-02-07 13:18 | disposition home or self-care (01) ==
LOC: ANHGOSHPT 09:15
PROVIDERS: PCP Hospitalist; Visit Provider Family Medicine
DX: Z86.73 Personal history of transient ischemic attack (TIA), and cerebral infarction without residual deficits (principal); R53.81 Other malaise; R53.1 Weakness
CPT/HCPCS: 97110; 97112; 97116; 97530